=== PATIENT | female | born 1955 | race Caucasian/White ===

== ENCOUNTER 2020-01-10 07:10 | Outpatient (CLI) | payer MEDICAID, SELFPAY ==
[2020-01-12 16:24] LABS: Patient Race White; SARS-CoV-2 RNA Undetected (Undetected); SARS-CoV-2 Specimen Source Nasopharynx
== END 2020-01-10 07:30 ==
PROVIDERS: Nurse Practitioner Family; PCP Nurse Practitioner Adult Health; Visit Provider Nurse Practitioner Adult Health
DX: R05 Cough (principal)
CPT/HCPCS: U0003

== ENCOUNTER 2020-03-09 02:02 | Outpatient (CLI) | payer MEDICAID, SELFPAY ==
--- NOTE | 2020-03-09 08:00 | DI.US_ITS ---
EXAM: US PELVIS TRANSVAGINAL CLINICAL HISTORY: post-menopausal pelvic pain uterine cramping,R53.83,R10.2. TECHNIQUE: Transabdominal and transvaginal pelvic ultrasound was performed using standard protocol. FINDINGS: KIDNEYS: Kidneys are symmetric in size. No evidence of renal calculi. No evidence of hydronephrosis. No renal mass or cyst identified. UTERUS: Position: Retroverted. Size: 5.4 long by 2.9 AP by 4.2 transverse cm Endometrium: 5.6 mm. Unremarkable appearing endometrium. Myometrium: Unremarkable. Cervix: Unremarkable. OVARIES: Right: 2 x 1.2 x 1.2 cm Cyst or mass: None. Left: Not visualized transabdominally or transvaginally. DOPPLER: Color: Symmetric and uniform flow to the right ovary. No hyperemia. Duplex: Normal right ovarian arterial waveform visualized. CUL-DE-SAC: Free fluid: None. Other: None. IMPRESSION: 1. Normal sonographic appearance of the kidneys. 2. Normal-appearing uterus with endometrial stripe within normal limits. 3. Unremarkable right ovary. The left ovary was not visualized transabdominally or transvaginally. DATA REPOSITORY:
== END 2020-03-09 02:22 ==
PROVIDERS: PCP Nurse Practitioner Adult Health; Visit Provider Nurse Practitioner Adult Health
DX: R10.2 Pelvic and perineal pain (principal); N94.89 Other specified conditions associated with female genital organs and menstrual cycle
CPT/HCPCS: 76830; 76856

== ENCOUNTER 2020-03-11 02:55 | Outpatient (CLI) | payer MEDICAID, SELFPAY ==
[2020-03-11 07:28] LABS: HCT 39.7 % (36.0-46.0); HGB 13.1 g/dL (11.2-15.7); MCH 29.3 pg (27.0-33.0); MCV 88.8 fL (80-95); MPV 10.3 fL (8.0-11.0); Platelet Count 242 10^3/uL (130-400); RBC 4.47 10^6/uL (3.93-5.22); RDW 12.2 % (11.7-14.6); RDW-SD 39.8 fL; WBC 5.62 10^3/uL (4.4-10.8)
[2020-03-11 11:11] LABS: ALT 30 U/L (14-59); AST 17 U/L (15-37); Albumin 3.8 g/dL (3.4-5.0); Alkaline Phosphatase 83 U/L (46-116); Anion Gap 8.3 mmol/L (3-11); BUN 12 mg/dL (7-18); Bilirubin, Total 0.3 mg/dL (0.2-1.0); CO2 27.7 mmol/L (21.0-32.0); Calcium 8.9 mg/dL (8.5-10.1); Calculated LDL 146 mg/dL (<100); Chloride 107 mmol/L (98-107); Cholesterol 205 mg/dL (<200); Glucose 109 mg/dL (74-106); HDL Cholesterol 41 mg/dL (40-60); Potassium 4.2 mmol/L (3.5-5.1); Sodium 143 mmol/L (136-145); Total Protein 6.8 g/dL (6.4-8.2); Triglyceride 94 mg/dL (<150); Vitamin B12 226 pg/mL (193-986)
[2020-03-12 04:41] LABS: Vitamin D 25 Total 19.1 ng/ml (30-100)
== END 2020-03-11 03:15 ==
PROVIDERS: PCP Nurse Practitioner Adult Health; Visit Provider Nurse Practitioner Adult Health
DX: F41.8 Other specified anxiety disorders (principal); R13.10 Dysphagia, unspecified; R53.83 Other fatigue; Z13.220 Encounter for screening for lipoid disorders; Z86.39 Personal history of other endocrine, nutritional and metabolic disease
CPT/HCPCS: 36415; 80053; 80061; 82306; 85027; 82607; 83735; 84443

== ENCOUNTER 2020-10-19 01:25 | Outpatient (CLI) | payer MEDICAID, SELFPAY ==
--- NOTE | 2020-10-19 06:45 | DI.US_ITS ---
Exam(s) US ABDOMEN EXAM: US ABDOMEN CLINICAL HISTORY: gallbladder 2014 ?h/o borderline fatty liver,epigastric pain,r10.13 TECHNIQUE: Ultrasound of complete upper abdomen performed using standard protocol. COMPARISON: CT PELVIC/LOWER ABD WITHOUT CONT from 08/03/2016 CT PELVIC/LOWER ABD WITHOUT CONT from 08/03/2016 US US PELVIS TRANSVAGINAL from 03/09/2020 FINDINGS: There is no ascites evident. LIVER: There are no hepatic lesions evident nor obvious dilatation of intrahepatic ducts. GALLBLADDER/BILIARY: There are no gallstones. No gallbladder wall edema nor pericholecystic fluid. The common hepatic duct isnot dilated, measuring 3-4mm at the level of manuel hepatis. PANCREAS: There is no evidence of pancreatic mass nor dilatation of the pancreatic duct. SPLEEN: The spleen is not enlarged and there are no intrasplenic lesions evident. KIDNEYS:Kidneys exhibit normal size with no evidence of solid mass, calculus, nor hydronephrosis. No cortical cysts evident. ABDOMINAL AORTA: There is no evidence of abdominal aortic aneurysm. IVC: Normal diameter where visualized. IMPRESSION: 1. No evidence of cholelithiasis nor dilatation of the biliary tree. 2. No other significant ultrasound findings in the upper abdomen. 3. There is no ascites. DATA REPOSITORY:
--- NOTE | 2020-10-19 07:43 | DI.MAMMO_ITS ---
Exam(s) MAMMO SCREENING EXAM: MAMMO SCREENING CLINICAL HISTORY: screening,z12.39. TECHNIQUE: Bilateral full field digital CC and MLO mammographic images were obtained with 3D tomosyn thesis and utilizing computer aided detection (CAD). COMPARISON: Prior mammograms dating back to 2012, the most recent being 2015. Breast ultrasound September 2015 was also reviewed. FINDINGS: There has been no significant change in the appearance and distribution of the fibroglandular tissue. There are no new spiculated masses nor malignant appearing microcalcification groups. There is no significant architectural distortion nor skin thickening-retraction. IMPRESSION: No radiographic evidence of malignancy. BI-RADS Category 1 - Negative Breast Density - Category B - Scattered areas of fibroglandular density Breast density Category C or D implies that the patient has dense breast tissue. Dense breast tissue can make it harder to find cancer on a mammogram. Dense breast tissue is also associated with an incr eased risk of breast cancer. This information about the result of the mammogram report was provided to the patient to raise their awareness. Use this report when you speak with the patient about their risks for breast cancer, which includes their family history. At that time, you may recommend additional screening tests (Ultrasoun d or MRI) as these tests may add significant information. A negative radiographic report should not delay biopsy if a dominant or clinically suspicious mass is present. Up to ten percent of cancers are not identified on mammography. A negative report may reinforce clinical impression. Adenosis and dense breasts may obscure an underlying neoplasm. False positive reports average 6 to 10%. Patient will receive a letter notifying them of these results.
== END 2020-10-19 01:45 ==
PROVIDERS: PCP Nurse Practitioner Adult Health; Visit Provider Nurse Practitioner Adult Health
DX: Z12.31 Encounter for screening mammogram for malignant neoplasm of breast (principal); R10.13 Epigastric pain
CPT/HCPCS: 77063; 77067; 76700

== ENCOUNTER 2020-10-26 11:21 | Outpatient (REF) | payer MEDICAID, SELFPAY ==
--- NOTE | 2020-10-26 11:00 | PAPFT_PTH ---
PATIENT: Opal Hermosillo LOC: [facility] U#:[id number] AGE/SX: 64/F ROOM: RE10/26/[address]: Sparkle Smart APRN : 1955 BED: DIS: 10/26/2020 SPEC #: [id number] RECD: 10/26/20 18:12 STATUS: HAYES REQ #: [id number] ZUNILDA: 10/26/20 11:[address]: Sparkle Smart DEPT: [facility] Cytology RECD BY: Gauri Gordon Tissues: 1 - CX/ENDOCX FOR PAP SMEARS Procedures: PAP THIN PREP/UVM Screening HPV DNA PROBE Comments: [id number]
== END 2020-10-26 11:22 | disposition home or self-care (01) ==
LOC: LBN 11:21
PROVIDERS: PCP Nurse Practitioner Adult Health; Referring Provider Nurse Practitioner Adult Health; Visit Provider Nurse Practitioner Adult Health
DX: Z12.4 Encounter for screening for malignant neoplasm of cervix (principal); Z11.51 Encounter for screening for human papillomavirus (HPV)
CPT/HCPCS: 88142; 87624

== ENCOUNTER 2021-03-18 01:19 | Outpatient (CLI) | payer MEDICAID, SELFPAY ==
--- NOTE | 2021-03-18 08:30 | DI.DEXA_ITS ---
Exam(s) XR DEXA BONE DENSITY W/WO RIGO EXAM: XR DEXA BONE DENSITY W/WO RIGO CLINICAL HISTORY: compare with 2016 study,OSTEOPENIA, ,VIT D DEFICIENT,M85.80 TECHNIQUE: DDRdrive Horizon C densitometer COMPARISON: 2016 FINDINGS: Lateral view of the thoracic and lumbar spine shows no evidence of compression fractures. Bone mineral density measurements of the lumbar spine correspond to a total T-score of -2.2. This re presents a 9.2 percent decrease when compared with 2016. Bone mineral density measurements of the left hip correspond to a total T-score of -1.8. The femora l neck T-score is -1.9. This represents a 16.5 percent decrease compared with 2016.. The left forearm bone mineral density measurements correspond to a T-score of the distal 3rd of -1.7 , representing a 5.1 percent decrease compared with 2016. IMPRESSION: Osteopenia of the lumbar spine, left hip and left forearm with significant decreases in bone mineral density when compared with 2016.
== END 2021-03-18 01:39 ==
PROVIDERS: PCP Nurse Practitioner Adult Health; Visit Provider Nurse Practitioner Adult Health
DX: M85.88 Other specified disorders of bone density and structure, other site (principal); E55.9 Vitamin D deficiency, unspecified
CPT/HCPCS: 77080

== ENCOUNTER 2021-06-23 02:35 | Outpatient (CLI) | payer MEDICAID, SELFPAY ==
[2021-06-23 09:08] LABS: ALT 32 U/L (14-59); AST 17 U/L (15-37); Albumin 3.7 g/dL (3.4-5.0); Alkaline Phosphatase 78 U/L (46-116); BUN 14 mg/dL (7-18); Bilirubin, Total 0.4 mg/dL (0.2-1.0); CREATININE 0.8 mg/dL (0.55-1.02); Calcium 8.8 mg/dL (8.5-10.1); Calculated LDL 158 mg/dL (<100); Chloride 107 mmol/L (98-107); Cholesterol 225 mg/dL (<200); Glucose 102 mg/dL (74-106); HDL Cholesterol 46 mg/dL (40-60); Potassium 4.4 mmol/L (3.5-5.1); Sodium 142 mmol/L (136-145); TSH 3.65 uIU/mL (0.36-3.74); Total Protein 6.9 g/dL (6.4-8.2); Triglyceride 106 mg/dL (<150); Vitamin B12 378 pg/mL (193-986)
[2021-06-23 09:24] LABS: FREE T4 1.02 ng/dL (0.76-1.46)
[2021-06-23 19:49] LABS: Thyroglobulin Antibody 56 U/mL (<=60); Thyroperoxidase Antibody 1228 U/mL (<=60)
[2021-06-24 05:10] LABS: Vitamin D 25 Total 21.9 ng/mL (30-100)
== END 2021-06-23 02:36 | disposition home or self-care (01) ==
LOC: LBO 02:36
PROVIDERS: PCP Nurse Practitioner Adult Health; Visit Provider Nurse Practitioner Adult Health
DX: E53.8 Deficiency of other specified B group vitamins (principal); E55.9 Vitamin D deficiency, unspecified; E66.3 Overweight; E78.00 Pure hypercholesterolemia, unspecified; M85.88 Other specified disorders of bone density and structure, other site; R73.01 Impaired fasting glucose; Z80.8 Family history of malignant neoplasm of other organs or systems; Z83.49 Family history of other endocrine, nutritional and metabolic diseases
CPT/HCPCS: 36415; 80053; 80061; 82306; 86376; 82607; 84439; 84443

== ENCOUNTER → 2022-02-08 01:31 | Outpatient (CLI) | payer MEDICAID, SELFPAY ==
--- OUTSIDE RECORDS SUMMARY | 2022-01-21 00:28 | XMS_ITS | Clinical Summary ---
:1955 Author Organization [facility] [place] [address] Care Team Providers Name Role Phone Jennifer Haynesyce Yamilka REID Primary Care Provider Allergies Active Allergy Reactions Severity Noted Date Comments Sulfa (Sulfonamide Rash, Other (See 05/22/2014 Chill s/shakes/eyes Antibiotics) Comments) red. Medications Medication Sig Dispensed Refills Start Date End Date Status ERGOCALCIFEROL, Take by mouth 0 Active VITAMIN D2, (VITAMIN daily. D ORAL) MAGNESIUM ORAL Take 1,000 mg by 0 Active mouth daily. clonazePAM (KLONOPIN) Take 0.5 mg by 0 Active 0.5 mg Tablet, Rapid mouth as needed. Dissolve ibuprofen Take 600 mg by 0 Activ e (ADVIL;MOTRIN) 600 mg mouth as needed for Tablet Pain. Mometasone (NASONEX) by Nasal route as 0 Active 50 mcg/actuation needed. Mallard, Non-Aerosol acyclovir (ZOVIRAX) Take 400 mg by 0 Active 400 mg Tablet mouth as needed (for outbreaks on skin.). Active Problems Problem Noted Date Arthritis, degenerative 05/22/2014 Environmental allergies 05/22/2014 Heart palpitations 05/22/2014 Family History Medical History Relation Comments Diabetes Other Cancer Paternal Grandmother Fractures Neg Hx Relation Status Comments Other Paternal Grandmother Social History Tobacco Use Types Packs/Day Years Used Date Former Smoker Cigarettes 0.75 13 Quit: 05/08/18 88 Smokeless Tobacco: Never Used Alcohol Use Standard Drinks/Week Comments Yes 0 (1 standard drink = 0.6 oz pure alcoho l) very seldom states. Sex Assigned at Date Recorded Not on file Last Filed Vital Signs Vital Sign Reading Time Taken Comments Blood Pressure 131/67 05/22/2014 9:38 AM EST Pulse 85 05/22/2014 9:38 AM EST Temperature - - Respiratory Rate - - Oxygen Saturation - - Inhaled Oxygen Concentration - - Weight 82.4 kg (181 lb 11.2 oz) 05/22/2014 9:38 AM EST Height 161.3 cm (5' 3.5) 05/22/2014 9:38 AM EST Body Mass Index 31.68 05/22/2014 9:38 AM EST Plan of Treatment Health Maintenance Due Date Last Done Comments Covid-19 Vaccine (#1) 1962 HIV screen 11/20/1975 Hepatitis C Screening 11/20/1975 Tdap adult 1976 Tetanus vaccine 1976 HPV test 11/20/1987 PAP Smear 11/20/1987 Breast Cancer Share Decision Needed 1997 Colonoscopy 2002 Breast Cancer screening 11/20/2007 Zoster vaccine (1 of 2) 11/20/2007 Advance Directive 2012 Influenza (Flu) vaccine (1 of 1 - Influenza standard 01/06/2022 series) Insurance Payer Benefit Plan / Subscriber ID Effective Dates Phone Addre ss Type Group [place] [address] [place] [id number] 2017-Pres [phone] [address] [facility] [address] [place], [place] [id number] Care Teams Fuel System Maintenance Supervisor Relationship Specialty Start Date End Date Ramona Haynes APRN PCP - General Internal Medicine 04/25/[address] [place] [address]
--- OUTSIDE RECORDS SUMMARY | 2022-01-21 00:28 | XMS_ITS | Encounter Summary ---
:1955 Author Organization [facility] [place] [address] Care Team Providers Name Role Phone Suman Montgomery MD Primary Care Provider [phone] Reason for Visit Reason Onset Date Comments Pre Procedure Call 08/08/2014 Encounter Details Date Type Department Care Team Description 08/08/2014 [place]phone [place] [facility] [place], Pre Procedure Call [facility] [place] [address] [facility] [phone] ORTHOPAEDIC SURG [place], [place] [address] (Wo rk) Social History Tobacco Use Types Packs/Day Years Used Date Former Smoker Cigarettes 0.75 13 Quit: 05/08/18 88 Smokeless Tobacco: Never Used Alcohol Use Standard Drinks/Week Comments Yes 0 (1 standard drink = 0.6 oz pure alcoho l) very seldom states. Sex Assigned at Date Recorded Not on file documented as of this encounter Miscellaneous Notes Telephone Encounter - Maribel Jean RN - 08/08/2014 2:42 PM EDT Phone call to Ms. Hermosillo to discuss pain management prior to surgery. No answer at this time - message left requesting call back. Telephone Encounter - Sally Hamm - 08/08/2014 2:10 PM EDT Patient is calling asking what else she can take besides ibuprofen for pain. She is scheduled for a RIGHT TKA with Dr. Garcia on 09/08/14. I explained that usually Dr. Garcia does not give out any pre-operative pain medication and that needs to be managed through her primary care doctor but that I wouldpass the information along to see if the nurse might be able to offer up other suggestions or over th e counter medications that could help relieve the pain before surgery. documented in this encounter Plan of Treatment Not on filedocumented as of this encounter Visit Diagnoses Not on filedocumented in this encounter Care Teams Gearcase Assembler Relationship Specialty Start Date End Date Suman Montgomery MD PCP - General 03/30/10 02/14/[address] [place] [address] documented as of this encounter
--- OUTSIDE RECORDS SUMMARY | 2022-01-21 00:29 | XMS_ITS | Encounter Summary ---
:1955 Author Organization [facility] Address [facility] [place] [address] Care Team Providers Name Role Phone Suman Montgomery MD Primary Care Provider [phone] Encounter Details Date Type Department Care Team Description 07/24/2014 Orders Only [place] [facility] [place] Jean, Primary osteoarthritis [facility] RN of right knee ([address] Dx) [place] [address] Social History Tobacco Use Types Packs/Day Years Used Date Former Smoker Cigarettes 0.75 13 Quit: 05/08/18 88 Smokeless Tobacco: Never Used Alcohol Use Standard Drinks/Week Comments Yes 0 (1 standard drink = 0.6 oz pure alcoho l) very seldom states. Sex Assigned at Date Recorded Not on file documented as of this encounter Plan of Treatment Not on filedocumented as of this encounter Visit Diagnoses Diagnosis Primary osteoarthritis of right knee - P rimary Primary localized osteoarthrosis, lower leg documented in this encounter Care Teams Edge Cutting Machine Operator Relationship Specialty Start Date End Date Suman Montgomery MD PCP - General 03/30/10 02/14/17 [address] [place] [address] documented as of this encounter
--- OUTSIDE RECORDS SUMMARY | 2022-01-21 00:29 | XMS_ITS | Encounter Summary ---
:1955 Author Organization [facility] [place] [address] Care Team Providers Name Role Phone Suman Gallegos MD Primary Care Provider [phone] Reason for Visit Reason Onset Date Comments Referral 03/21/2014 Encounter Details Date Type Department Care Team Description 03/21/2014 Telephone [place] [facility] [place] [address] Social History Tobacco Use Types Packs/Day Years Used Date Never Assessed Sex Assigned at Date Recorded Not on file documented as of this encounter Miscellaneous Notes Telephone Encounter - Macarena Jones - 03/28/2014 8:09 AM EST Info here and scheduled for 05/22/[address] Garcia. Telephone Encounter - Donita Green - 03/26/2014 11:24 AM EST Left message to schedule referral. Telephone Encounter - Sherine Shore - 03/24/2014 9:33 AM EST Ask the patient to verify the following: Full Name: Opal Hermosillo : 1955 Phone number: [phone] (home) Mailing address: [address] [place] [address] Age: 58 y.o. Appointment date: TBD Appointment is with: TBD Reason #1 Injury/Complaint: RIGHT KNEE PAIN Date of injury/complaint: SEPTEMBER 2012 Is this a new injury? No Is this a 2nd opinion? Yes Appointment type: 18-100 Adult - Not sports related Is this Workers Comp? No How long have you had these symptoms? 1 1/2 years Records Retrieval Most recent physical exam: Yes - When? Where? Who? Notes: 2013 [place], [place] PH: [phone] FAX: [phone] GALLEGOS X-rays: Yes - When? Where? Notes: [id number] [place], [place] PH: [phone] FAX: [phone] IMG PUSH MRI: Yes - When? Where? Notes: March 2013 [place], [place] PH: [phone] FAX: [phone] Scan: No Physical therapy: Yes - When? Where? Who? Notes: APR 2013- JUL 2013 [place], [place] PH: [phone] FAX: [phone] IMG PUSH Injection: Yes - When? Where? Who? Notes: [address] [place], [place] PH: [phone] FAX: [phone] VYAS Other diagnostic studies: No Other therapies: No Other specialist(s): No If 2nd (+) opinion get info on previous: Yes - What? When? Where? Who? Notes: ORTHOPEDIC SURGERY SEPTEMBER 2012- 2013 [place], [place] PH: [phone] FAX: [phone] VYAS Have you had any surgeries for this issue? Yes - What? When? Where? Who? Notes: [facility]ISC[facility] TEAR April 2013 [place], [place] PH: [phone] FAX: [phone] IMG PUSH Did surgery include placement of implant/hardware or fixation of any kind? No Do you use any type of orthotics? No Advanced Directive Do you have an Advanced Directive on file: No - Please bring a copy to your next appointment. Advance Directive airline pilot flight instructor: New patient with knee pain under age of 55. MyD Do you have a [facility] account? No - Patient Declined Telephone Encounter - Macarena Jones - 03/21/2014 3:46 PM EST LM #1 to call back and set up referral. documented in this encounter Plan of Treatment Not on filedocumented as of this encounter Visit Diagnoses Not on filedocumented in this encounter Care Teams Level Vial Sealer Relationship Specialty Start Date End Date Suman Gallegos MD PCP - General 03/30/10 02/14/17 [address] [place] [address] documented as of this encounter
--- OUTSIDE RECORDS SUMMARY | 2022-01-21 00:29 | XMS_ITS | Encounter Summary ---
:1955 Author Organization [facility] [address] Care Team Providers Name Role Phone Suman Montgomery MD Primary Care Provider [phone] Reason for Visit Reason Comments Right Knee Pain s/p doi wc 09/05/12 Encounter Details Date Type Department Care Team Description 05/22/2014 Office Visit [place] [facility] [place]ph [place] [facility] [place] [address] Primary osteoarthritis [facility] Tessa Fuller APRN [facility] [place] [address] [place] [id number] Social History Tobacco Use Types Packs/Day Years Used Date Former Smoker Cigarettes 0.75 13 Quit: 05/08/18 88 Smokeless Tobacco: Never Used Alcohol Use Standard Drinks/Week Comments Yes 0 (1 standard drink = 0.6 oz pure alcoho l) very seldom states. Sex Assigned at Date Recorded Not on file documented as of this encounter Last Filed Vital Signs Vital Sign Reading [...] Mass Index 31.68 05/22/2014 9:38 AM EST documented in this encounter Progress Notes Tessa Lubin, WRAPPER AND PRESERVER - 05/22/2014 10:48 AM EST PATIENT NAME: Opal Hermosillo AGE: 58 y.o. MR#: [id number] DATE OF VISIT: 05/22/2014 DATE OF INJURY/ONSET: September 2012 STAFF: Today's covering physician is Dr. Garcia. CHIEF COMPLAINT: Right knee pain s/p medial menisectomy HISTORY OF PRESENT ILLNESS Ms. Hermosillo a 58 y.o. year old female, with a history of right knee advanced DJD, comes into clinic today for moderate to severe right medial knee pain s/p medial menisectomyin April 2013. She states she initially tripped over a tailgate when she sustained the meniscus tear. She had the surgery and reports that she felt great for about a month and then began to rapidly decline. She developed severe medial right knee pain and decreased ROM to the point that she had to stop PT because of her discomfort. She reports that she went back to Dr. Garrett, who completed her surgery, and was told she had advanced arthritis and to loose 20lbs. This caused her great distress. Gailhas also been told by her PCP and massage therapist that her knee pain and images appear grossly abnormal, which has cause her anxiety. She states that the pain is worse with activities such as walkingand after transitioning from sitting to standing. She had a cortisone injection in January of 2014, which provided 2 weeks to 1 month of relief. She has also utilized NSAIDs without much relief. She also admits to intermittent swelling. She presents today for a second opinion. Outside reports reviewed: office notes, operative reports, radiology reports and referral letter/letters. Patient's medications, allergies, past medical, surgical, social and family histories were reviewed and updated as appropriate. PAST MEDICAL HISTORY: Active Ambulatory Problems Diagnosis Date Noted ??? Arthritis, degenerative 05/22/2014 ??? Environmental allergies 05/22/2014 ??? Heart palpitations 05/22/2014 Resolved Ambulatory Problems Diagnosis Date Noted ??? No Resolved Ambulatory Problems No Additional Past Medical History PAST SURGICAL HISTORY: Tubal ligation. x 2. Rhinoplasty. Right medial menisectomy in April 2013. FAMILY HISTORY: Family History Problem (# of Occurrences) Relation (Name,Age of Onset) Cancer (1) Paternal Grandmother Diabetes (1) Other Negative family history of: Fractures SOCIAL HISTORY: Tobacco: Former smoker. Quit in 1987. Alcohol: 1 drink per month. 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 Current outpatient prescriptions:ERGOCALCIFEROL, VITAMIN D2, (VITAMIN D ORAL), Take by mouth daily.,Disp: , Rfl: , ; MAGNESIUM ORAL, Take 1,000 mg by mouth daily., Disp: , Rfl: , ; clonazePAM (KLONOPIN) 0.5 mg Tablet, Rapid Dissolve, Take 0.5 mg by mouth as needed., Disp: , Rfl: , ; ibuprofen (ADVIL;MOTRIN) 600 mg Tablet, Take 600 mg by mouth as needed for Pain., Disp: , Rfl: , Mometasone (NASONEX) 50 mcg/actuation [place], Non-Aerosol, by Nasal route as needed., Disp: , Rfl: , ; acyclovir (ZOVIRAX) 400 mg Tablet, Take 400 mg by mouth as needed (for outbreaks on skin.)., Disp: , Rfl: , ROS: Negative for fever, chills, SOB, chest pain, nausea, vomiting, and diarrhea. Physical Exam Blood pressure 131/67, pulse 85, height 161.3 cm (5' 3.5), weight 82.419 kg (181 lb 11.2 oz). Constitutional: oriented to person, place, and time and well-developed, well- nourished, and in no distress. Skin: Skin is warm and dry. I have made the following determinations: Knee Exam: Right Prior surgery on this joint: Yes, medial menisectomy. Gait Abnormality: Normal Knee ROM: Extension:5 Flexion: 125 Alignment: 5-10 degrees Valgus Stability: A/P Translation <5mm. Varus (lateral stability) <5mm Valgus (medial stability) <5mm Extension La degrees or less Radiographic evidence of joint damage: [0= normal; 1=minimal ; 2= some osteophytes , some narrowing ; 3= moderate osteophytes, significant narrowing, mild deformity; 4= large osteophytes, marked narrowing, obvious deformity]: 4= large osteophytes, marked narrowing, obvious deformity Patella Tracking: Abnormal Skin Integrity: Normal Pulses Palpable: Right PT: Yes Right DP:Yes Motor/Sensory: Distal Motor: Normal Distal Sensory: Normal Quadriceps Strength: 4 I have made the following determinations: Knee Exam: Left Prior surgery on this joint: No Gait Abnormality: Normal Knee ROM: Extension:0 Flexion: 125 Alignment: 5-11 degrees Valgus Stability: A/P Translation <5mm Varus (lateral stability) <5mm Valgus (medial stability) <5mm Extension La degrees or less Radiographic evidence of joint damage: [0= normal; 1=minimal ; 2= some osteophytes , some narrowing ; 3= moderate osteophytes, significant narrowing, mild deformity; 4= large osteophytes, marked narrowing, obvious deformity]: 3= moderate osteophytes, significant narrorwing, mild deformity Patella Tracking: Abnormal Skin Integrity: Normal Pulses Palpable: Left PT:Yes Left DP:Yes Motor/Sensory: Distal Motor:Normal Distal Sensory: Normal Quadriceps Strength:4 RADIOLOGICAL STUDIES: I reviewed multiple x-ray images of the patient's bilateral knees taken today,which reveal the following: FINDINGS: The standing alignment study documents medial displacement of the mechanical axis bilaterally secondary to pronounced medial compartment joint space narrowing. Abnormal findings include subchondral sclerosis, osteophyte formation and severe joint space narrowing at the medial compartment. I do not see evidence of acute injury. ASSESSMENT/PLAN: Opal Hermosillo is a 58 y.o. female presents to the clinic with rapidly worsening right knee pain s/p medial menisectomy in April of 2013. Exam and imaging reveal advanced medial compartment degenerative joint disease bilaterally, though she is only symptomatic on the right side. Dr. Garcia and I discussed with the patient that rapidly progressing DJD sometimes occurs following arthroscopy. We also discussed the arthritis ladder with the patient. She has exhausted mostly all of the conservative measures with exception to a medial compartment offloading brace, thus a prescription for one was given. We discussed that she would likely not benefit from further cortisone injections as her response was not robust last time; however, we would be happy to provide one if she would like to try again. Dr. Garcia also discussed a potential right TKA as the ultimate intervention and reassured her that shecould continue activities as tolerated without causing further harm. The patient will go home and think about her options and f/u PRN. documented in this encounter Plan of Treatment Not on filedocumented as of this encounter Visit Diagnoses Diagnosis Primary osteoarthritis of right knee Primary localized osteoarthrosis, lower leg documented in this encounter Care Teams Sweat Band Sewer Relationship Specialty Start Date End Date Suman Montgomery MD PCP - General 03/30/10 02/14/[address] [place] [address] documented as of this encounter
--- OUTSIDE RECORDS SUMMARY | 2022-01-21 00:29 | XMS_ITS | Encounter Summary ---
:1955 Author Organization [facility] [place] [address] Care Team Providers Name Role Phone Suman Montgomery MD Primary Care Provider [phone] Encounter Details Date Type Department Care Team Description 01/24/2013 Orders Only Orthopaedics at [facility] Joesph Garcia MD [facility] [place] [address] ORTHOPAEDIC SURGERY [phone] [place] [address] (Wo rk) Social History Tobacco Use Types Packs/Day Years Used Date Never Assessed Sex Assigned at Date Recorded Not on file documented as of this encounter Plan of Treatment Not on filedocumented as of this encounter Procedures Procedure Name Priority Date/Time Associated Diagnosis Comme nts FILM LIBRARY Routine 01/24/2013 8:15 AM Results f or this STORAGE ONLY DX EDT procedure ar e in KNEE the results section. documented in this encounter Results Film Library- Storage only DX Knee (01/24/2013 8:15 AM EDT) Anatomical Region Laterality Modality Other Specimen (Source) Anatomical Collection Method Collection Time Re ceived Time Location / / Volume Laterality 01/24/2013 8:15 AM EDT Narrative 03/25/2014 8:45 PM EST This is a Non-reportable exam Procedure Note ESTELA, UNSIGNED REPORT - 03/25/2014Formatt ing of this note might be different from the original. This is a Non-reportable exam Joesph Garcia MD IMG FILM LIBRARY ORDERABLES documented in this encounter Visit Diagnoses Not on filedocumented in this encounter Care Teams Quiller Hand Relationship Specialty Start Date End Date Suman Montgomery MD PCP - General 03/30/10 02/14/[address] [place] [address] documented as of this encounter
--- OUTSIDE RECORDS SUMMARY | 2022-01-21 00:29 | XMS_ITS | Encounter Summary ---
:1955 Author Organization [facility] Address [facility] [place] [address] Care Team Providers Name Role Phone Suman Montgomery MD Primary Care Provider [phone] Encounter Details Date Type Department Care Team Description 05/22/2014 Hospital Encounter XRay at [facility] Right knee pain [facility] [place] [address] Social History Tobacco Use Types Packs/Day Years Used Date Former Smoker Cigarettes 0.75 13 Quit: 05/08/18 88 Smokeless Tobacco: Never Used Alcohol Use Standard Drinks/Week Comments Yes 0 (1 standard drink = 0.6 oz pure alcoho l) very seldom states. Sex Assigned at Date Recorded Not on file documented as of this encounter Medications at Time of Discharge Medication Sig Dispensed Refills Start Date End Date ERGOCALCIFEROL, VITAMIN Take by mouth daily. 0 D2, (VITAMIN D ORAL) MAGNESIUM ORAL Take 1,000 mg by mouth 0 daily. clonazePAM (KLONOPIN) Take 0.5 mg by mouth as 0 0.5 mg Tablet, Rapid needed. Dissolve ibuprofen (ADVIL;MOTRIN) Take 600 mg by mouth as 0 600 mg Tablet needed for Pain. Mometasone (NASONEX) 50 by Nasal route as 0 mcg/actuation [place], needed. Non-Aerosol acyclovir (ZOVIRAX) 400 Take 400 mg by mouth as 0 mg Tablet needed (for outbreaks on skin.). documented as of this encounter Plan of Treatment Not on filedocumented as of this encounter Procedures Procedure Name Priority Date/Time Associated Diagnosis Comme nts XR JOINT TEAM Routine 05/22/2014 9:20 AM Results for this ALIGNMENT AP LAT EST procedure a re in [place] the results section. documented in this encounter Results XR Joint Team alignment AP LAT [place] (05/22/2014 9:20 AM EST) Anatomical Region Laterality Modality N/A Radiographic Imaging Specimen (Source) Anatomical Collection Method Collection Time Re ceived Time Location / / Volume Laterality 05/22/2014 9:20 AM EST Impressions 05/22/2014 12:03 PM EST IMPRESSION: Severe osteoarthritis with medial compar tment narrowing bilaterally. Narrative 05/22/2014 12:03 PM EST EXAMINATION: JOINT TEAM STANDING ALIGNMENT AP LAT [place] CLINICAL HISTORY: R KNEE PAIN/ OA/DJD/2N D OPINION TECHNIQUE: Separate images of the pelvis , knees and feet were acquired in the AP projection with the patient standing. Th emory images were stitched together to form a composite image of the pelvis and legs allowing for evaluation of lower extremity alignment in the weight bearin g position. Four additional views of the knee were taken. COMPARISON: 01/13/2014 FINDINGS: The standing alignment study d ocuments medial displacement of the mechanical axis bilaterally secondary to pronounced medial compartment joint space narrowing. Abnormal findings include subchondral sc lerosis, osteophyte formation and severe joint space narrowing at the medial comp artment. I do not see evidence of acute injury. Procedure Note Butch Harman MD - 05/22/2014Forma tting of this note might be different from the original. EXAMINATION: JOINT TEAM STANDING ALIGNME NT AP LAT [place] CLINICAL HISTORY: R KNEE PAIN/ OA/DJD/2N D OPINION TECHNIQUE: Separate images of the pelvis , knees and feet were acquired in the AP projection with the patient standing. Th emory images were stitched together to form a composite image of the pelvis and legs allowing for evaluation of lower extremity alignment in the weight bearin g position. Four additional views of the knee were taken. COMPARISON: 01/13/2014 FINDINGS: The standing alignment study d ocuments medial displacement of the mechanical axis bilaterally secondary to pronounced medial compartment joint space narrowing. Abnormal findings include subchondral sc lerosis, osteophyte formation and severe joint space narrowing at the medial comp artment. I do not see evidence of acute injury. IMPRESSION IMPRESSION: Severe osteoarthritis with medial compar tment narrowing bilaterally. Joesph Garcia MD IMG DX ORDERABLES documented in this encounter Visit Diagnoses Diagnosis Right knee pain Pain in joint, lower leg documented in this encounter Care Teams Leg Man Relationship Specialty Start Date End Date Suman Montgomery MD PCP - General 03/30/10 02/14/17 [address] [place] [address] documented as of this encounter
--- OUTSIDE RECORDS SUMMARY | 2022-01-21 00:29 | XMS_ITS | Encounter Summary ---
:1955 Author Organization [facility] Address [facility] [place] [address] Care Team Providers Name Role Phone Suman Montgomery MD Primary Care Provider [phone] Reason for Visit Reason Onset Date Comments Questions 07/23/2014 WANTS TO SCHEDULE JOYA SREE Encounter Details Date Type Department Care Team Description 07/23/2014 Telephone Orthopaedics at [facility] Joesph Garcia, Questions (WANTS TO [facility] Swapnil cervantes MD SCHEDULE SURGERY) [place] [address] [facility] [phone] DR ORTHOPAEDIC SURGERY [place], [place] [address] Social History Tobacco Use Types Packs/Day Years Used Date Former Smoker Cigarettes 0.75 13 Quit: 05/08/18 88 Smokeless Tobacco: Never Used Alcohol Use Standard Drinks/Week Comments Yes 0 (1 standard drink = 0.6 oz pure alcoho l) very seldom states. Sex Assigned at Date Recorded Not on file documented as of this encounter Miscellaneous Notes Telephone Encounter - Sally Hamm - 07/28/2014 10:10 AM EDT I called patient back and she has decided to go forward with a RIGHT TKA with Dr. Garcia on 09/08/14. I have scheduled her pre-op and post-op appointments with her over the phone. Thank you. 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 I gave her several dates that Dr. Garcia has available and told her to callme back directly once she knows what will work for her. Telephone Encounter - Macarena Jones - 07/23/2014 9:47 AM EDT Who is calling: PATIENT Was this a new injury? NO Have you had Surgery?NOT YET WANTS TO SCHEDULE If so when?NO Who was the Surgeon?DR. GARCIA What is the question: PATIENT IS CALLING TO SAY SHE WANTS TO SET UP THE SURGERY FOR THE RIGHT KNEE TKA Best number to reach the caller: [phone] documented in this encounter Plan of Treatment Not on filedocumented as of this encounter Visit Diagnoses Not on filedocumented in this encounter Care Teams Electronic Warfare Linguist Relationship Specialty Start Date End Date Suman Montgomery MD PCP - General 03/30/10 02/14/[address] [place] [address] documented as of this encounter
--- OUTSIDE RECORDS SUMMARY | 2022-01-21 00:29 | XMS_ITS | Encounter Summary ---
:1955 Author Organization [facility] [place] [address] Care Team Providers Name Role Phone Suman Montgomery MD Primary Care Provider [phone] Encounter Details Date Type Department Care Team Description 03/11/2013 Orders Only Orthopaedics at [facility] Joesph Garcia [place] [address] ORTHOPAEDIC SURGERY [phone] [place] [address] (Wo rk) Social History Tobacco Use Types Packs/Day Years Used Date Never Assessed Sex Assigned at Date Recorded Not on file documented as of this encounter Plan of Treatment Not on filedocumented as of this encounter Procedures Procedure Name Priority Date/Time Associated Diagnosis Comme nts FILM LIBRARY Routine 03/11/2013 8:15 AM Results f or this STORAGE ONLY MR EST procedure ar e in KNEE the results section. documented in this encounter Results Film Library- Storage only MR Knee (03/11/2013 8:15 AM EST) Anatomical Region Laterality Modality Other Specimen (Source) Anatomical Collection Method Collection Time Re ceived Time Location / / Volume Laterality 03/11/2013 8:15 AM EST Narrative 03/25/2014 8:45 PM EST This is a Non-reportable exam Procedure Note ESTELA, UNSIGNED REPORT - 03/25/2014Formatt ing of this note might be different from the original. This is a Non-reportable exam Joesph Garcia MD IMG FILM LIBRARY ORDERABLES documented in this encounter Visit Diagnoses Not on filedocumented in this encounter Care Teams Landscaping Crew Leader Relationship Specialty Start Date End Date Suman Montgomery MD PCP - General 03/30/10 02/14/17 [address] [place] [address] documented as of this encounter
--- OUTSIDE RECORDS SUMMARY | 2022-01-21 00:29 | XMS_ITS | Encounter Summary ---
:1955 Author Organization [facility] [place] [address] Care Team Providers Name Role Phone Suman Montgomery MD Primary Care Provider [phone] Encounter Details Date Type Department Care Team Description 05/20/2014 Orders Only Orthopaedics at [facility] Joesph Garcia, Right knee pain [facility] [place] [address] [facility] [phone] DR ORTHOPAEDIC SURG [place] [address] (Wo rk) Social History Tobacco Use Types Packs/Day Years Used Date Never Assessed Sex Assigned at Date Recorded Not on file documented as of this encounter Plan of Treatment Not on filedocumented as of this encounter Visit Diagnoses Diagnosis Right knee pain Pain in joint, lower leg documented in this encounter Care Teams Dozer Operator Relationship Specialty Start Date End Date Suman Montgomery MD PCP - General 03/30/10 02/14/[address] [place] [address] documented as of this encounter
--- OUTSIDE RECORDS SUMMARY | 2022-01-21 00:29 | XMS_ITS | Encounter Summary ---
:1955 Author Organization [facility] [place] [address] Care Team Providers Name Role Phone Suman Montgomery MD Primary Care Provider [phone] Encounter Details Date Type Department Care Team Description 01/23/2014 Orders Only [place]edics at [facility] Joesph Garcia MD [facility] [place] [address] ORTHOPAEDIC SURGERY [phone] [place] [address] (Wo rk) Social History Tobacco Use Types Packs/Day Years Used Date Never Assessed Sex Assigned at Date Recorded Not on file documented as of this encounter Plan of Treatment Not on filedocumented as of this encounter Procedures Procedure Name Priority Date/Time Associated Diagnosis Comme nts FILM LIBRARY Routine 01/23/2014 8:15 AM Results f or this STORAGE ONLY DX EDT procedure ar e in KNEE the results section. documented in this encounter Results Film Library- Storage only DX Knee (01/23/2014 8:15 AM EDT) Anatomical Region Laterality Modality Other Specimen (Source) Anatomical Collection Method Collection Time Re ceived Time Location / / Volume Laterality 01/23/2014 8:15 AM EDT Narrative 03/25/2014 8:45 PM EST This is a Non-reportable exam Procedure Note ESTELA, UNSIGNED REPORT - 03/25/2014Formatt ing of this note might be different from the original. This is a Non-reportable exam Joesph Garcia MD IMG FILM LIBRARY ORDERABLES documented in this encounter Visit Diagnoses Not on filedocumented in this encounter Care Teams Baggage Inspector Relationship Specialty Start Date End Date Suman Montgomery MD PCP - General 03/30/10 02/14/[address] [place] [address] documented as of this encounter
--- OUTSIDE RECORDS SUMMARY | 2022-01-21 00:30 | XMS_ITS | Encounter Summary ---
:1955 Author Organization [facility] Address [address] [place] [address] Care Team Providers Name Role Phone Suman Montgomery MD Primary Care Provider [phone] Encounter Details Date Type Department Care Team Description 09/10/2012 Results Only [facility] Fletcher Garay, FITNESS CENTER ATTENDANT [address] [place] [address] (Wo rk) Social History Tobacco Use Types Packs/Day Years Used Date Never Assessed Sex Assigned at Date Recorded Not on file documented as of this encounter Plan of Treatment Not on filedocumented as of this encounter Procedures Procedure Name Priority Date/Time Associated Diagnosis Comme [facility] SURGICAL PATHOLOGY Routine 09/10/2012 16:34 Resul ts for this EDT procedure are i n the results section. documented in this encounter Results SURGICAL PATHOLOGY (09/10/2012 16:34 EDT) Pathology Report: SURGICAL PATHOLOGY REPORT [facility] Reports generated via electronic interface contain lucas ginal data; LAB however they are lacking the format of the original re port. Caution should be taken when reading/interpreting unfo rmatted reports. Name: ? OPAL BRAVO ? Accession #: ? [id number] ? : ? 1955 (Age: 56) ??F ? Collect Date: ? 09/10/2012 ? Location: ? [facility] ? Receive Date: ? 013 ? Provider: FLETCHER MESA [facility] ATTENDANT Copy to: ? Final Pathologic Diagnosis: ? Skin of shoulder, right posterior, punch biopsy : - Seborrheic keratosis. Microscopic Description: ? The stratum corneum i s thickened by compact and basketweave orthokeratosis with formation of horn pseud ocysts. ??The epidermis is acanthotic with formation of broad and anastomosing tr abeculae. ??The trabeculae are composed of basaloid keratinocytes with round uniform nuclei. ??The keratin ocytes have a variable amount of melanin pigment. ??(Dr. Mcfarland)/[facility] Document reviewed and electronically signed by: ONEIDA MCFARLAND MD Report ??Date: 09/12/2012 15:12 By the signature above, the attending physician certif ies that he/she has personally conducted a gross and/or microscopic examin ation of the described specimens and rendered or confirmed the above diagnosi s. Specimen(s) Received: ? R posterior shoulder skin lesion Clinical History: ? Irregular borders & brown nevi; clinical diagno sis code: ??709.9 Gross Description: ? Received in formalin labelled [place], Opal and R posterior shoulder is a 0.4 cm in diameter x 0. 2 cm in thickness apparent punch biopsy of zhao-pink firm skin. ??The specimen is bisected and entire ly submitted in cassette (1). (Aundrea Mcallister)/[facility] End of Report Specimen Performing Organization Address City/State/ZIP Code Phon e Number [facility] [address] [place] [address] SERVICES [facility] [address] [place] [address] documented in this encounter Visit Diagnoses Not on filedocumented in this encounter Care Teams Accountant Tax Relationship Specialty Start Date End Date Suman Montgomery MD PCP - General 06/04/[address] [place] [address] documented as of this encounter
--- OUTSIDE RECORDS SUMMARY | 2022-01-21 00:30 | XMS_ITS | Encounter Summary ---
:1955 Author Organization [facility] Address [address] [place] [address] Care Team Providers Name Role Phone Suman Montgomery MD Primary Care Provider [phone] Encounter Details Date Type Department Care Team Description 03/20/2014 Results Only [facility] Fletcher Garay, COMMUNICATIONS ENGINEERING TECHNICIAN [address] [place] [address] (Wo rk) Social History Tobacco Use Types Packs/Day Years Used Date Never Assessed Sex Assigned at Date Recorded Not on file documented as of this encounter Plan of Treatment Not on filedocumented as of this encounter Procedures Procedure Name Priority Date/Time Associated Diagnosis Comme nts PAP TEST- RESULT Routine 03/20/2014 0:00 EST Resu lts for this ONLY procedure are i n the results section. documented in this encounter Results PAP TEST- RESULT ONLY (03/20/2014 0:00 EST) Pathology Report: CYTOPATHOLOGY REPORT [facility] Reports generated via electronic interface contain lucas ginal data; SERVICES however they are lacking the format of the original re port. Caution should be taken when reading/interpreting unfo rmatted reports. Name: ? OPAL BRAVO ? Accession #: ? [id number] ? : ? 1955 (Age: 58) ??F ?Collect Da te: ? 03/20/2014 ? Location: ? [facility] ? Receive Date: ? 014 ? Provider: FLETCHER MESA COMMUNICATIONS ENGINEERING TECHNICIAN Copy to: ? Final Report SPECIMEN ADEQUACY ? Satisfactory for Evaluation - transformation zone component absent GENERAL CATEGORIZATION ? Negative for Intraepithelial Lesion or Malignan cy ?? Specimen/Source: ??Pap Test, Endocervix, ThinPrep Imag ing System with manual evaluation Document reviewed and electronically signed by: ? Rasta Cross, [place](ASCP) ? Report ??Date: 03/31/2014 10:16 HPV with Pap Test ? Date Ordered: ? 03/31/2014 ? Status: ?? Signed Out ?Date Complete: ? 04/02/2014 ? By: ??S ystem Interface ? Date Reported: ? 04/02/2014 ? Interpretation RESULT: Negative for HPV. No E6 or E7 mRNA is detected from HPV types 16,18,31,3 3,35, 39,45,51,52,56,58,59,66, and 68 by hand stone polisher media geoffrey amplification. Comments Document reviewed and electronically signed by: ? System Interface ? Report date: 04/02/2014 By the signature above, the attending physician certif ies that he/she has personally conducted a gross and/or microscopic examin ation of the described specimens and rendered or confirmed the above diagnosi s. End of Report Specimen Performing Organization Address City/State/ZIP Code Phon e Number [facility] [address] [place] [address] SERVICES documented in this encounter Visit Diagnoses Not on filedocumented in this encounter Care Teams Taxation Consultant Relationship Specialty Start Date End Date Suman Montgomery MD PCP - General 06/04/[address] [place] [address] documented as of this encounter
--- OUTSIDE RECORDS SUMMARY | 2022-01-21 00:30 | XMS_ITS | Encounter Summary ---
:1955 Author Organization [facility] Address [address] [place] [address] Care Team Providers Name Role Phone Suman Gallegos MD Primary Care Provider [phone] Encounter Details Date Type Department Care Team Description 03/26/2001 Results Only [facility] - Ilir Fontana MD conversion [address] [place] [address] Social History Tobacco Use Types Packs/Day Years Used Date Never Assessed Sex Assigned at Date Recorded Not on file documented as of this encounter Plan of Treatment Not on filedocumented as of this encounter Procedures Procedure Name Priority Date/Time Associated Diagnosis Comme [facility] SURGICAL PATHOLOGY Routine 03/26/2001 0:00 EST Re sults for this procedure are i n the results section. documented in this encounter Results SURGICAL PATHOLOGY (03/26/2001 0:00 EST) Pathology Report: SURGICAL PATHOLOGY REPORT [facility] Reports generated via electronic interface contain lucas ginal data; LAB however they are lacking the format of the original re port. Caution should be taken when reading/interpreting unfo rmatted reports. Name: ? OPAL BRAVO ? Accession #: ? [id number] ? : ? 1955 (Age: 45) ??F ? Collect Date: ? 03/26/2001 ? Location: ? [facility] ? Receive Date: ? 001 ? Provider: ILIR BROWN MD Copy to: SAMUEL GALLEGOS MD ? Final Pathologic Diagnosis: ? Peritoneum, left pelvic sidewall, biopsy: 1. ?Benign fibrofatty connective tissue. ?? 2. ?No fallopian tube identified. ?? Document reviewed and electronically signed by: IVONE ALONZO MD Report ??Date: 03/28/2001 16:13 By the signature above, the attending physician certif ies that he/she has personally conducted a gross and/or microscopic examin ation of the described specimens and rendered or confirmed the above diagnosi s. Specimen(s) Received: ? Left pelvic sidewall Clinical History: ? Laparoscopic tubal ligation Gross Description: ? Received in formalin labelled Bay and left pelvic sidewall is a 3.0 x 0.9 x 0.2 cm fragment of rodriguez-pink to rodriguez-white fibro membranous soft tissue with a moderate amount of ca utery artifact. ??The specimen is serially sectioned revealing no gross abnormalities and no evidence of fa llopian tube. ??The specimen is submitted entirely in one cassette. ??(Dr. Calvin)/heather End of Report Specimen Performing Organization Address City/State/ZIP Code Phon e Number [facility] [address] [place] [address] SERVICES [facility] [address] [place] [address] documented in this encounter Visit Diagnoses Not on filedocumented in this encounter Care Teams Zipper Joiner Relationship Specialty Start Date End Date Suman Gallegos MD PCP - General 06/04/09 [address] [place] [phone] documented as of this encounter
--- OUTSIDE RECORDS SUMMARY | 2022-01-21 00:30 | XMS_ITS | Encounter Summary ---
:1955 Author Organization [facility] Address [address] [place] [address] Care Team Providers Name Role Phone Suman Montgomery MD Primary Care Provider [phone] Encounter Details Date Type Department Care Team Description 06/04/2009 Orders Only [facility] Monique Zamudio, MELISSA Laboratory Services - [address] [address] [place] [address] [phone] Social History Tobacco Use Types Packs/Day Years Used Date Never Assessed Sex Assigned at Date Recorded Not on file documented as of this encounter Plan of Treatment Not on filedocumented as of this encounter Procedures Procedure Name Priority Date/Time Associated Comments Diagnosis HPV DETECTION, HIGH Routine 06/04/2009 15:08 Resu lts for this RISK TYPES EST procedure are i n the results section. CYTOPATHOLOGY Routine 06/04/2009 0:00 Results for this EST procedure are i n the results section. documented in this encounter Results HUMAN PAPILLOMA VIRUS DNA TEST (06/04/2009 15:08 EST) Specimen Description Cervix, ThinPrep [facility] AB vial Result Negative for HPV [facility] VAZQUEZ types 16, 18, 31, 33, 35, 39, 45, 51, 52, 56, 58, 59, and 68. Report Status Final [facility] 06/11/2009 Specimen Performing Organization Address City/State/ZIP Code Phon e Number [facility] [address] [place] [address] SERVICES [facility] [address] [place] [address] CYTOPATHOLOGY (06/04/2009 0:00 EST) Pathology Report: CYTOPATHOLOGY REPORT ? [facility] ? LAB Reports generated via electr ICONOGRAFICOic interface contain original data; ? however they are lacking the format of the original report. ? Caution should be taken when reading/interpreting unformatted reports. ? Name: ? OPAL BRAVO ? Accession #: ? [id number] ? : ? 1955 (Age: 53) ??F ?Collect Date: ? 06/04/2009 ? Location: ? [facility] ? Receive Date: ? 06/05/2009 ? Provider: ?JOEL L R [facility] ? Copy to: ?SARABJIT S YUNIOR [place] MD ? Specimen/Source: ? Pap Test, Vagina, ThinPrep Imaging System with manual ?? evaluation ? Last Menstrual Period: ? Other: ? Additional clinical informat ion: Vaginal lesion, past hx of warts ? HPVDX - HPV testing requeste d regardless of diagnosis on current ThinPrep Pap ?? test. ? SPECIMEN ADEQUACY ? Satisfactory for Eval uation ? - transformation zone compon ent present ? GENERAL CATEGORIZATION ? Negative for Intraepi thelial Lesion or Malignancy ? Document reviewed and electr onically signed by: ? Devora Lalo, CT(ASCP ) ? Report Date: ??02/01/ 2010 08:58 ? End of Report ? Specimen Performing Organization Address City/State/ZIP Code Phon e Number [facility] [address] [place] [address] SERVICES [facility] [address] [place] [address] documented in this encounter Visit Diagnoses Not on filedocumented in this encounter Care Teams Safety Leader Relationship Specialty Start Date End Date Suman Montgomery MD PCP - General 06/04/09 [address] [place] [phone] documented as of this encounter
--- OUTSIDE RECORDS SUMMARY | 2022-01-21 00:30 | XMS_ITS | Encounter Summary ---
:1955 Author Organization [facility] Address [address] [place] [address] Care Team Providers Name Role Phone Suman Montgomery MD Primary Care Provider [phone] Encounter Details Date Type Department Care Team Description 06/23/2021 Lab Requisition [facility] Outr Resulting Lab, Pathology & Laboratory Provider [facility] [address] [place], [place] [address] Social History Tobacco Use Types Packs/Day Years Used Date Never Assessed Sex Assigned at Date Recorded Not on file documented as of this encounter Plan of Treatment Not on filedocumented as of this encounter Procedures Procedure Name Priority Date/Time Associated Diagnosis Comme nts THYROID ANTIBODIES Routine 06/23/2021 7:21 EST Re sults for this procedure are i n the results section. documented in this encounter Results (ABNORMAL) THYROID ANTIBODIES (06/23/2021 7:21 EST) Pathologist Sig nature Anti-Thyroglobulin 56 <=60 U/mL [facility] Thyroperoxidase Ab 1,228 (H) <=60 U/mL [facility] Specimen Blood - Venous blood (substance) Performing Organization Address City/State/ZIP Code Phon e Number [facility] [address] [place] [address] SERVICES documented in this encounter Visit Diagnoses Not on filedocumented in this encounter Care Teams Clinical Psychiatrist Relationship Specialty Start Date End Date Suman Montgomery MD PCP - General 06/04/[address] [place] [phone] documented as of this encounter
--- OUTSIDE RECORDS SUMMARY | 2022-01-21 00:30 | XMS_ITS | Clinical Summary ---
:[address] [facility] Address [address] [place] [address] Care Team Providers Name Role Phone Suman Montgomery MD Primary Care Provider [phone] Social History Tobacco Use Types Packs/Day Years Used Date Never Assessed Sex Assigned at Date Recorded Not on file Plan of Treatment Not on file Care Teams Contract Paralegal Relationship Specialty Start Date End Date Suman Montgomery MD PCP - General 06/04/[address] [place] [phone]
--- OUTSIDE RECORDS SUMMARY | 2022-01-21 00:30 | XMS_ITS | Encounter Summary ---
:1955 Author Organization [facility] Address [address] [place] [address] Care Team Providers Name Role Phone Suman Montgomery MD Primary Care Provider [phone] Encounter Details Date Type Department Care Team Description 04/18/2006 Results Only [facility] - Barbara Richter son, Kelsie Harrison, CHUTE OPERATOR conversion [address] [place] [phone] (Wo rk) Social History Tobacco Use Types Packs/Day Years Used Date Never Assessed Sex Assigned at Date Recorded Not on file documented as of this encounter Plan of Treatment Not on filedocumented as of this encounter Procedures Procedure Name Priority Date/Time Associated Diagnosis Comme nts CYTOPATHOLOGY Routine 04/18/2006 0:00 EST Results for this procedure are i n the results section . documented in this encounter Results CYTOPATHOLOGY (04/18/2006 0:00 EST) Pathology Report: CYTOPATHOLOGY REPORT [facility] Reports generated via electronic interface contain lucas ginal data; however they are lacking the format of the original re port. Caution should be taken when reading/interpreting unfo rmatted reports. Name: ? OPAL BRAVO ? Accession #: ? [id number] : ? 1955 (Age: 50) ??F ?Collect Date: ? 04/07 Location: ? [facility] ? Receive Date : ? 04/19/2006 Provider: ?KELSIE COOK CHUTE OPERATOR Copy to: ? Specimen/Source: ? ThinPrep Pap Test, Cervix/Endocervix, processed on [employer] ThinPrep Imaging System, with manual evaluation Last Menstrual Period: ? 04/06/06 Other: ? HPVA - HPV testing requested if ASC-US on the current ThinPrep Pap test. ? SPECIMEN ADEQUACY ? Satisfactory for Evaluation - transformation zone component present GENERAL CATEGORIZATION ? Negative for Intraepithelial Lesion or Malignan cy ? Document reviewed and electronically signed by: ? CHAN Urban(ASCP) ? Report Date: ??04/25/2006 13:15 End of Report Specimen Performing Organization Address City/State/ZIP Code Phon e Number [facility] [address] [place] [address] SERVICES [facility] [address] [place] [address] documented in this encounter Visit Diagnoses Not on filedocumented in this encounter Care Teams Urogynaecologist Relationship Specialty Start Date End Date Suman Montgomery MD PCP - General 06/04/09 [address] [place] [phone] documented as of this encounter
--- OUTSIDE RECORDS SUMMARY | 2022-01-21 00:30 | XMS_ITS | Encounter Summary ---
:1955 Author Organization [facility] Address [address] [place] [address] Care Team Providers Name Role Phone Suman Montgomery MD Primary Care Provider [phone] Encounter Details Date Type Department Care Team Description 10/27/2020 Lab Requisition [facility] Sparkle Smart En jessica for screening for malignant neoplasm of cervix; Pathology & L, RN ER Encounter for screening for human papill omavirus (HPV) Laboratory Medicine [address] [place] [phone] Social History Tobacco Use Types Packs/Day Years Used Date Never Assessed Sex Assigned at Date Recorded Not on file documented as of this encounter Plan of Treatment Not on filedocumented as of this encounter Procedures Procedure Name Priority Date/Time Associated Diagnosis Comme nts PAP TEST Today 10/26/2020 11:00 Encounter for Results fo r this EDT screening for procedure are in malignant neoplasm of the re sults cervix section. Encounter for screening for human papillomavirus (HPV) HUMAN PAPILLOMAVIRUS Today 10/26/2020 11:00 Encounter for Re sults for this (HPV) DETECTION-HIGH EDT screening for proced ure are in RISK TYPES malignant neoplasm of the re sults cervix section. Encounter for screening for human papillomavirus (HPV) documented in this encounter Results HUMAN PAPILLOMAVIRUS (HPV) DETECTION-HIGH RISK TYPES (10/26/2020 11:00 EDT) Human Papillomavirus NegativeComment: No Negative [facility] (HPV) Detection-High E6 or E7 mRNA is CENTER LABORATOR Y Types detected from HPV SERVICES types 16,18,31,33,35,39,45 ,51,52,56,58,59,66, and 68 by recovery specialist mediated amplification. Specimen Pap Test - Cervix and/or Endocervix Performing Organization Address City/State/ZIP Code Phon e Number [facility] [address] [place] [address] SERVICES PAP TEST (10/26/2020 11:00 EDT) Specimens A. Cervix and/or [facility] Endocervix , ThinPrep CENTER Imaging System with LABORATORY Manual Evaluation SERVICES Specimen Adequacy Satisfactory for [facility] Evaluation - CENTER transformation zone LABORATORY component present SERVICES General Negative for [facility] intraepithelial [place] lesion or malignancy LABORATORY SERVICES Attestation . [facility] signed by Ryan martin, LABORATORY CHAN Peres( CP) SERVICES on 11/05/2020 at 1715 Clinical History See below [facility] SERVICES HPV The result for the Human Pap illomavirus (HPV) Detection-High Risk Types is Negative. No E6 or E7 mRNA is detected from HPV types 16,18,31,33,35,39,45,51,52,56,58,59,66, and 68 by recovery specialist mediated [facility] amplification.Testing was pe rformed on specimen [id number] and was resulted on 11/05/2020 1714 EDT by ESTELA, LAB INSTRUMENT RESULTS IN [facility] SERVICES Performing Lab [facility] SERVICES Scanned Images [facility] SERVICES Specimen Pap Test - Cervix and/or Endocervix Performing Organization Address City/State/ZIP Code Phon e Number [facility] [address] [place] [address] SERVICES documented in this encounter Visit Diagnoses Diagnosis Encounter for screening for malignant ne oplasm of cervix Screening for malignant neoplasm of the cervix Encounter for screening for human papill omavirus (HPV) Special screening examination for human papillomavirus (HPV) documented in this encounter Care Teams Chief Nuclear Medicine Technologist Relationship Specialty Start Date End Date Suman Montgomery MD PCP - General 06/04/[address] [place] [phone] documented as of this encounter
--- OUTSIDE RECORDS SUMMARY | 2022-01-21 00:30 | XMS_ITS | Encounter Summary ---
:1955 Author Organization [facility] Address [address] [place] [address] Care Team Providers Name Role Phone Suman Montgomery MD Primary Care Provider [phone] Encounter Details Date Type Department Care Team Description 03/23/2005 Results Only [facility] - Barbara Richter son, Kelsie Harrison, CASTER INVESTMENT CASTING conversion [address] [place] [phone] (Wo rk) Social History Tobacco Use Types Packs/Day Years Used Date Never Assessed Sex Assigned at Date Recorded Not on file documented as of this encounter Plan of Treatment Not on filedocumented as of this encounter Procedures Procedure Name Priority Date/Time Associated Diagnosis Comme nts CYTOPATHOLOGY Routine 03/23/2005 0:00 EST Results for this procedure are i n the results section . documented in this encounter Results CYTOPATHOLOGY (03/23/2005 0:00 EST) Pathology Report: CYTOPATHOLOGY REPORT [facility] Reports generated via electronic interface contain lucas ginal data; however they are lacking the format of the original re port. Caution should be taken when reading/interpreting unfo rmatted reports. Name: ? OPAL BRAVO ? Accession #: ? [id number] : ? 1955 (Age: 49) ??F ?Collect Date: ? 03/08 Location: ? [facility] ? Receive Date : ? 03/24/2005 Provider: ?KELSIE COOK CASTER INVESTMENT CASTING Copy to: ? Specimen/Source: ? ThinPrep Pap Test, Cervix/Endocervix, processed on [employer] ThinPrep Imaging System, with manual evaluation Last Menstrual Period: ? 03/14/05 ? SPECIMEN ADEQUACY ? Satisfactory for Evaluation - transformation zone component present GENERAL CATEGORIZATION ? Negative for Intraepithelial Lesion or Malignan cy INTERPRETATION ? Shift in violeta present suggestive of bacterial vaginosis. ? Document reviewed and electronically signed by: ? CHAN Murguia(ASCP) ? Report Date: ??03/28/2005 12:28 End of Report Specimen Performing Organization Address City/State/ZIP Code Phon e Number [facility] [address] [place] [phone] SERVICES [facility] [address] [place] [address] documented in this encounter Visit Diagnoses Not on filedocumented in this encounter Care Teams Flying Instructor Relationship Specialty Start Date End Date Suman Montgomery MD PCP - General 06/04/09 [address] [place] [phone] documented as of this encounter
--- NOTE | 2022-02-08 08:08 | DI.MAMMO_ITS ---
Exam(s) MAMMO SCREENING EXAM: MAMMO SCREENING CLINICAL HISTORY: screening,z12.39. TECHNIQUE: Bilateral full field digital CC and MLO mammographic images were obtained with 3D tomosyn thesis and utilizing computer aided detection (CAD). COMPARISON: Prior mammograms were reviewed, the most recent being October 2020. FINDINGS: There has been no significant change in the appearance and distribution of the fibroglandular tissue. There are no new spiculated masses nor malignant appearing microcalcification groups. There is no significant architectural distortion nor skin thickening-retraction. IMPRESSION: No radiographic evidence of malignancy. BI-RADS Category 1 - Negative Breast Density - Category B - Scattered areas of fibroglandular density Breast density Category C or D implies that the patient has dense breast tissue. Dense breast tissue can make it harder to find cancer on a mammogram. Dense breast tissue is also associated with an incr eased risk of breast cancer. This information about the result of the mammogram report was provided to the patient to raise their awareness. Use this report when you speak with the patient about their risks for breast cancer, which includes their family history. At that time, you may recommend additional screening tests (Ultrasoun d or MRI) as these tests may add significant information. A negative radiographic report should not delay biopsy if a dominant or clinically suspicious mass is present. Up to ten percent of cancers are not identified on mammography. A negative report may reinforce clinical impression. Adenosis and dense breasts may obscure an underlying neoplasm. False positive reports average 6 to 10%. Patient will receive a letter notifying them of these results.
== END ==
PROVIDERS: PCP Nurse Practitioner Adult Health; Visit Provider Nurse Practitioner Adult Health
DX: M81.0 Age-related osteoporosis without current pathological fracture (principal); E55.9 Vitamin D deficiency, unspecified; Z83.49 Family history of other endocrine, nutritional and metabolic diseases; Z12.31 Encounter for screening mammogram for malignant neoplasm of breast
CPT/HCPCS: 36415; 77063; 77067; 82306; 84439; 84443

== ENCOUNTER 2022-02-18 13:53 | Outpatient (CLI) | payer MEDICAID, SELFPAY ==
--- NOTE | 2022-02-18 13:45 | RT.EKG_ITS ---
APPROVED REPORT Exam: Resting ECG Reason for Exam: pre-op Patient Location: O HR:73 bpm ECG Measurements Heart Rate 73 AXIS UT 185 P 42 QRSd 85 QRS 14 QT 388 T 32 QTc 428 Conclusion Sinus rhythm...normal P axis, V-rate 50- 99 Normal Electrocardiogram
== END 2022-02-18 13:54 | disposition home or self-care (01) ==
LOC: DI.KIM 13:54
PROVIDERS: PCP Nurse Practitioner Adult Health; Visit Provider Nurse Practitioner Adult Health
DX: M17.11 Unilateral primary osteoarthritis, right knee (principal); M17.12 Unilateral primary osteoarthritis, left knee; Z01.818 Encounter for other preprocedural examination
CPT/HCPCS: 93010

== ENCOUNTER 2022-03-04 16:02 | Outpatient (REF) | payer MEDICAID, SELFPAY ==
[2022-03-06 14:57] LABS: COVID-19 RT-PCR UVMMC Result Negative (Negative)
== END 2022-03-04 16:03 | disposition home or self-care (01) ==
LOC: LBN 16:02
PROVIDERS: PCP Nurse Practitioner Adult Health; Visit Provider Nurse Practitioner Adult Health
DX: H92.02 Otalgia, left ear (principal); R09.89 Other specified symptoms and signs involving the circulatory and respiratory systems; Z20.822 Contact with and (suspected) exposure to COVID-19
CPT/HCPCS: U0003

== ENCOUNTER → 2022-03-09 11:16 | Outpatient (CLI) | payer MEDICAID, SELFPAY ==
--- NOTE | 2022-03-09 09:00 | DI.RAD_ITS ---
Exam(s) XR CHEST 2V PA LATERAL EXAM: XR CHEST 2V PA LATERAL CLINICAL HISTORY: ? infiltrate, productive cough,r05.8 TECHNIQUE: 2D digital imaging was performed. COMPARISON: CR CHEST 2 VIEWS PA,LAT from 02/02/2015 FINDINGS: HEART: Normal size. Aorta: Mildly tortuous. PULMONARY VASCULATURE: Normal. LUNGS: Clear. PLEURAL SPACE: No pleural effusion or pneumothorax. BONE:Degenerative disc changes. IMPRESSION: No acute abnormality. DATA REPOSITORY: RADIATION DOSE DELIVERED:
== END ==
PROVIDERS: PCP Nurse Practitioner Adult Health; Visit Provider Nurse Practitioner Adult Health
DX: R05.8 Other specified cough (principal)
CPT/HCPCS: 71046

== ENCOUNTER 2022-07-04 12:11 | Outpatient (CLI) | payer MEDICAID, SELFPAY ==
--- NOTE | 2022-07-04 10:45 | DI.RAD_ITS ---
Exam(s) XR HIP RT COMPLETE AP PELVIS EXAM: XR HIP RT COMPLETE AP PELVIS CLINICAL HISTORY: RT HIP PAIN-M25.551, FALL-W19.XXXA. TECHNIQUE: 2D digital imaging was performed of the right hip. Three images were obtained. AP pelvis and lateral right hip views were obtained. COMPARISON: CT PELVIC/LOWER ABD WITHOUT CONT from 08/03/2016 CR XR DEXA BONE DENSITY W/WO RIGO from 03/18/2021 FINDINGS: BONES: No acute or healing fracture is present. No bony destructive lesion is seen. JOINTS: No dislocation present. SOFT TISSUE: Soft tissue calcifications are again seen in the right pelvis. IMPRESSION: No acute fracture or dislocation is seen. DATA REPOSITORY: RADIATION DOSE DELIVERED:
--- OUTSIDE RECORDS SUMMARY | 2022-07-04 12:13 | XMS_ITS | Continuity of Care Document ---
Author Name Unknown Organization [facility] Ambulatory Clinics Address [address] [place] [address] Care Team Providers Care Communications Advisor Name Role Phone Unavailable, Physician Primary Care Physician Un available Encounter [facility] NBR [id number] Date(s): 05/25/22 - 05/25/22 [facility] [address] [place] [address]- [place] Encounter Diagnosis Bilateral osteoarthritis of knees(Discharge Diagnosis) - 05/25/22 Post-traumatic osteoarthritis of right knee(Discharge Diagnosis) - 05/25/22 Discharge Disposition: Home or Self Care Attending Physician: Christi Wiseman APRN Allergies, Adverse Reactions, Alerts Substance Reaction Severity Status lidocaine Anaphylactic reaction Severe Active sulfamethoxazole-trimethoprim Severe Active sulfa drugs Rash Moderate Active amide-type local anesthetics Unknown Active SUMAtriptan Throat discomfort Moderate Active Anchovy Throat swelling Severe Active Functional Status 05/25/22 Other exposure to Infectious Disease Non e Medications acyclovir 400 mg oral tablet 400 mg = 1 tab, Oral, BID, PRN itching/rash, # 14 tab, 0 Refill(s) Start Date: 03/08/22 Status: Ordered B 100 Complex oral tablet 1 tab, Oral, Daily, # 100 tab, 0 Refill(s) Start Date: 05/25/22 Status: Ordered diclofenac sodium 50 mg oral delayed release tablet 50 mg = 1 tab, Oral, TID, # 90 tab, 0 Refill(s), Pharmacy: [id number] Start Date: 05/25/22 Status: Ordered hydrOXYzine hydrochloride 25 mg oral tablet 25 mg = 1 tab, Oral, QID, PRN as needed for anxiety, # 40 tab, 0 Refill(s) Start Date: 03/08/22 Status: Ordered ibuprofen 200 mg oral tablet QID, 0 Refill(s) Start Date: 05/25/22 Status: Ordered ketoconazole 2% topical shampoo 240 mL, APPLY TO AFFECTED AREA(S) ONCE DAILY DIRECTED NEEDED FOR ADRIANA DERM, 0 Refill(s) Start Date: 05/25/22 Status: Ordered magnesium (as chloride)-calcium (as carbonate) 71 mg-118 mg oral delayed release tablet 2 tab, Oral, Daily, # 60 tab, 0 Refill(s) Start Date: 05/25/22 Status: Ordered mometasone 50 mcg/inh nasal spray 2 sprays, Nasal, BID, # 17 g, 0 Refill(s) Start Date: 03/08/22 Status: Ordered ProAir HFA 90 mcg/inh inhalation aerosol 1 puffs, Inhale, QID, PRN as needed for wheezing, # 8.5 g, 0 Refill(s) Start Date: 03/08/22 Status: Ordered Tylenol Extra Strength 500 mg oral tablet QID, 2 Unknown, 0 Refill(s) Start Date: 05/25/22 Status: Ordered Vitamin D with Minerals oral tablet 1 tab, Oral, Daily, # 30 tab, 0 Refill(s) Start Date: 03/08/22 Status: Ordered Vitamin D3 1000 intl units oral capsule 25 mcg = 1 cap, Oral, Daily, # 75 cap, 0 Refill(s) Start Date: 05/25/22 Status: Ordered zinc (as gluconate) 30 mg oral tablet 30 mg = 1 tab, Oral, Daily, # 100 tab, 0 Refill(s) Start Date: 05/25/22 Status: Ordered Problem List Condition Confirmation Course Effective Dates Status H ealth Status Informant Bilateral osteoarthritis of knees Confirmed Active Chronic sinusitis Confirmed Active GERD - Gastro-esophageal reflux disease Confirmed Active History of COVID-19 Confirmed 09/10/21 Active History of osteopenia Confirmed Active HSV - Herpes simplex virus Confirmed Active Seasonal allergy Confirmed Active Vitamin D deficiency Confirmed Active Procedures Procedure Date Related Diagnosis Body Site Status Tubal ligation 02/2001 Completed Rhinoplasty 1982 Completed Arthroscopic knee operation Completed section 1 Comple geoffrey Manipulation of deviated nasal septum 2 Completed 1x2 2surgery Vital Signs Most recent to oldest [Reference Range]: 1 Peripheral Pulse Rate [60-100 bpm] 80 bp m (05/25/22 9:02 AM) Blood Pressure [90-140/60-90 mmHg] 134/7 0mmHg (05/25/22 9:02 AM) Weight 79.38 kg (05/25/22 9:02 AM) Weight Measured (lbs) 175.003 lb (05/25/22 9:02 AM) Height 158.75 cm (05/25/22 9:02 AM) Height/Length Measured (inches) 62.5 inc h (05/25/22 9:02 AM) BSA Measured 1.87 m2 (05/25/22 9:02 AM) Body Mass Index 31.5 kg/m2 (05/25/22 9:02 AM) Social History Social History Type Response Tobacco Former tobacco user Tobacco Use:. 1, 2 Sex 1quit 35 years ago 2Quit 10+ years ago Physician Outpatient Note * Christi Wiseman, CEMENTER: PERFORM, MODIFY Event Display: Office Clinic Note Physician Authored Date: [id number] OPAL BRAVO Christy :1955 Age:66 years Sex:Female Visit Date:05/25/2022 Primary Care Physician: Unavailable, Physician Chief Complaint Bilateral Knee pain History of Present Illness Chief complaint: Right knee pain,??Opal is well-known to this clinic,??was last evaluated by Dr. Wiseman September 08, 2021 for bilateral knee pain.?? The right knee however is a Worker's Compensation injury.?? Original injury was August 2012,??she was treated in April [address] Garrett??and went through knee arthroscopy??over the years she has progressed??with??osteoarthritis of this knee.?? Knee replacement has been discussed several times,??most recently she was scheduled for right total knee arthroplasty on 03/23/2022??with Dr. Wiseman.?? This was canceled due to??lung infection??by her primary care physician.?? Since then??we have??reached back out to Opal to try to get her back onthe surgical schedule, she tells us that her lungs are still not up to snuff, has not been cleared to proceed by her primary care physician.?? She does have significant arthritic change of both knees.?? She had dropped off some??paperwork for??disability??about a month ago.?? At that point we had??t ried to get her rescheduled for definitive management of her knee arthritis??being total knee arthroplasty.?? This is when she let us know she has not been cleared by her primary care physician to goforward with surgery as of yet. ?? She comes in today stating that both knees are bothersome, her left knee was never bothersome but is the right knee started to progress with posttraumatic osteoarthritis the left knee became more more??discomfort and unable to support her.?? 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 ??Having to drive??hours at a time.?? She has been unable to??do these things,standing for more than 30 minutes is uncomfortable, and going from sit to stand is very uncomfortable and stiff,??driving for any period of time??causes swelling and pain,??she is unable to carry??anything over 10 pounds??due to loading the right knee. ??At this point she is really very??limited onwhat she can do for work.?? Here today for evaluation suggestions on care going forward. ??She tries to limit anti-inflammatories due to GERD. ?? Duration: Since 2012 ?? Cause: Work related injury which is well documented??within her Worker's Compensation file ?? Treatment: Anti-inflammatories, bracing, physical therapy, activity modification, nonsteroidal anti-inflammatories as well as injections in the past. ?? Symptoms: Pain, intermittent swelling, catching sensation,??achiness. Review of Systems Constitutional:?No??fevers,?No??chills,?No??sweats Eye:?No??recent visual problems ENT:?No??ear pain,?No??nasal congestion,?No??sore throat Respiratory:?No??shortness of breath,?No??cough Cardiovascular:?No??Chest pain,?No??palpitations,?No??syncope Gastrointestinal:?Nonausea,?No??vomiting,?No??diarrhea Genitourinary:?No??hematuria Babak/Lymph:?No??bruising tendency,?No??swollen lymph glands Endocrine:?No??excessive thirst,??No??excessive hunger Musculoskeletal:??No??back pain,??No??neck pain,??Positive for??joint pain,??No??muscle pain,??Positive for??decreased range of motion Integumentary:?No??rash,?No??pruritus,?No??abrasions Neurologic: Alert & oriented X 4 Psychiatric:?No??anxiety,?No??depression Physical Exam Vitals & Measurements HR:??80??(Peripheral)?? BP:??134/70?? SpO2:??97%?? HT:??158.75??cm?? WT:??79.38??kg?? BMI:??31.5?? Pain Score:??8?? BSA:??1.87?? General: ??appears stated age, well dressed HEENT: no loss of hearing, normocephalic, EOMs intact Neuro: ??grossly intact, if indicated see specific neurology exam Psych: ??alert and oriented to place and time, pleasant, cooperative Dermatology: ??no gross open areas of skin-see exam of limb for specifics Lymphatics: ??no lymphedema of affected limb Gait: Very antalgic utilizing a cane Vascular: ??pulses distally of limb are 2+?? Musculoskeletal: Right knee: To inspection there is obvious varus deformity, she is lacking full extension by 10 degrees, flexion today is limited to 100 significant tenderness to palpation of the medial joint line less so at the lateral joint line patellar prehension is negative, patellar grind ispositive there is significant tenderness??in the popliteal fossa as well.?? Palpable crepitance with flexion to extension. Assessment/Plan 1.??Post-traumatic osteoarthritis of right knee??M17.31 Between reviewing her prior??visit with Dr. Wiseman September 2021, her surgery being canceled for lung??infection,??and reviewing her x-ray findings I spent 1 hour, 60 minutes, reviewing her??history, we spent??35 minutes together in the office today with physical exam, going over history,??the fact that she??is finding it difficult to do her daily activities as well as her job due to increasing??and worsening??right knee osteoarthritis due to work related injury.?? At this point??she is unable to??do her entirety of her job, I indicated this on her Worker's Compensation form, we will be unable however to do Celebrex as she does have a sulfa allergy so I did switch that prescription to diclofenac.?? I am suggesting FCE at this point,??I believe that her primary care physician is seeing her next week, if she is cleared for surgery then the definitive fix would be attainable??if she has not cleared for surgery FCE is needed??for a functional capacity exam??and really looking at Opal and her inability to fulfill her job.?? All of this is discussed with her at length,??again we did discuss the definitive fix would be knee replacement however if she is medically not optimized and clearedfor that procedure??then that would be her specific disability at this point.?? Worker's Compensation form is filled out again??and??I did decrease her activity and ability??to be standing, driving,??bending stooping??walking on uneven ground up and down hill??and carrying anything of any weight??due to the significant and worsening osteoarthritis of her right knee. 2.??Bilateral osteoarthritis of knees??M17.0 Problem List/Past Medical History Ongoing Bilateral osteoarthritis of knees Chronic sinusitis GERD - Gastro-esophageal reflux disease History of COVID-19 History of osteopenia HSV - Herpes simplex virus Seasonal allergy Vitamin D deficiency Historical No qualifying data Procedure/Surgical History ???Tubal ligation (02/2001)???Rhinoplasty (1982)???Arthroscopic knee operation??? section???Manipulation of deviated nasal septum Medications acyclovir 400 mg oral tablet, 400 mg= 1 tab, Oral, BID, PRN B 100 Complex oral tablet, 1 tab, Oral, Daily hydrOXYzine hydrochloride 25 mg oral tablet, 25 mg= 1 tab, Oral, QID, PRN ibuprofen 200 mg oral tablet, QID ketoconazole 2% topical shampoo magnesium (as chloride)-calcium (as carbonate) 71 mg-118 mg oral delayed release tablet, 2 tab, Oral, Daily mometasone 50 mcg/inh nasal spray, 2 sprays, Nasal, BID ProAir HFA 90 mcg/inh inhalation aerosol, 1 puffs, Inhale, QID, PRN Tylenol Extra Strength 500 mg oral tablet, QID Vitamin D with Minerals oral tablet, 1 tab, Oral, Daily Vitamin D3 1000 intl units oral capsule, 25 mcg= 1 cap, Oral, Daily zinc (as gluconate) 30 mg oral tablet, 30 mg= 1 tab, Oral, Daily Allergies Anchovy??(Throat swelling) lidocaine??(Anaphylactic reaction) sulfamethoxazole-trimethoprim SUMAtriptan??(Throat discomfort) sulfa drugs??(Rash) amide-type local anesthetics Social History Alcohol 1-2 times per month Electronic Cigarette/Vaping Electronic Cigarette Use: Never. Tobacco Former tobacco user Tobacco Use:.- Comments: quit 35 years ago Quit 10+ years ago Family History Arthritis: Father. Cancer: Grandmother (P). Heart attack: Mother. High cholesterol: Mother. Hypertension: Mother and Father. Family Member(s): ?? GPARENT, at age: Unknown. Cause of : Health Maintenance ?Pending??(in the next year) ?Due?Adult Wellness Exam due?05/25/22?and every 1?years ?Alcohol Use Screening due?05/25/22?and every 1?years ?Breast Cancer Screening due?05/25/22?and every 2?years ?Cervical Cancer Screening due?05/25/22?Variable frequency ?Colorectal Cancer Screening due?05/25/22?Variable frequency ?Depression Screening due?05/25/22?and every 1?years ?Glaucoma Screening due?05/25/22?and every 1?years ?HIV Screening due?05/25/22?and every 1?years ?Hepatitis C Screening due?05/25/22?One-time only ?Lipid Screening due?05/25/22?and every 5?years ?Satisfied??(in the past 1 year) ?Satisfied?Body Mass Index on?05/25/22.?Satisfied by Ashleigh Chandler ?? Electronically Signed on 05/25/22 03:10 PM Christi Wiseman APRN Reviewed by: Weston Wiseman DO Patient Care team information Personnel Name: Unavailable, Physician
--- OUTSIDE RECORDS SUMMARY | 2022-07-04 12:14 | XMS_ITS ---
Author Name Ed Hanks Address [address] [place], [place] [id number] Organization [facility] Address [address] [place], [place] [id number] Care Team Providers Care Pastry Cook Name Role Phone SigourneyDiane pererane Unavailable [phone] PROBLEMS Type Condition ICD9-CM Code BQT86-VE Code Onset Dates Condition Status SNOMED Code Problem Postnasal drip R09.82 Active 86761694 Problem Cough R05 Active 80986369 Problem Pressure and pain of left side of face R51.9 Active Problem Xerostomia K11.7 Active 90370184 Problem Chronic sinusitis, unspecified J32.9 Active 02806676 Problem Globus sensation F45.8 Active 2530319 08 Problem Change in voice R49.9 Active 39039896 5 Problem Cervicalgia M54.2 Active 62786974 ALLERGIES Substance Reaction Event Type Date Status sulfa Unknown Drug Allergy Feb, Active Omnaris headache/sore throat Drug Allergy Feb, Active Lidocaine Unknown Drug Allergy Feb, Active ENCOUNTERS Encounter Location Date Diagnosis [facility] [address] [place] [id number] Feb, Xerostomia K11.7 ; Pressure and pain of left side of face R51.9 and Cervicalgia M54.2 [facility] [address] [place] [id number] Nov, Postnasal drip R09.82 ; Change in voice R49.9 and Globus sensation F45.8 [facility] [address] [facility] [address] [place], [place] [phone] Aug, Chronic sinusitis, unspecified J32.9 ; Cough R05 and Postnasal drip R09.82 [facility] [address] [facility] [address] [place], [place] [phone] May, Chronic sinusitis, unspecified J32.9 ; Cough R05 and Postnasal drip R09.82 [facility] [address] [facility] [address] [place] [id number] Apr, [facility] [address] [facility] [address] [place] [id number] Apr, Chronic sinusitis, unspecified J32.9 ; Cough R05 and Postnasal drip R09.82 [facility] [address] [id number] Apr, [facility] [address] [facility] [address] [place] [id number] Apr, IMMUNIZATIONS No Known Immunizations SOCIAL HISTORY Never Assessed REASON FOR REFERRAL FUNCTIONAL STATUS PLAN OF CARE Activity Details VITAL SIGNS Height 5 ft 3 in in 2020-03-03 Height 5 ft 3 in in 2015-11-11 Height 5 ft 3 in in 2015-08-12 Height 5 ft 3 in in 2015-05-13 Height 5 ft 3 in in 2015-04-13 Weight 185 lbs 2020-03-03 Weight 177 lbs 2015-11-11 Weight 182 lbs 2015-08-12 Weight 182 lbs 2015-05-13 Weight 182 lbs 2015-04-13 Heart Rate 72 /min 2020-03-03 Heart Rate 72 /min 2015-11-11 Heart Rate 76 /min 2015-08-12 Heart Rate 70 /min 2015-05-13 Heart Rate 72 /min 2015-04-13 Oximetry 97 2020-03-03 Respiratory Rate 14 /min 2020-03-03 Respiratory Rate 15 /min 2015-11-11 Respiratory Rate 15 /min 2015-08-12 Respiratory Rate 15 /min 2015-05-13 Respiratory Rate 15 /min 2015-04-13 BMI 32.77 kg/m2 2020-03-03 BMI 31.35 kg/m2 2015-11-11 BMI 32.24 kg/m2 2015-08-12 BMI 32.24 kg/m2 2015-05-13 BMI 32.24 kg/m2 2015-04-13 Blood pressure systolic 122 mm Hg Blood pressure diastolic 86 mm Hg 2020-02 MEDICATIONS Medication Instructions Dosage Frequency Start Date End Date Duration Status Nasonex 50 MCG/ACT Nasally Once a day 2 sprays in each nostril 24h Aug, 30 day(s) Active Acyclovir 400 MG Orally Twice a day 1 tablet 12h Active Ibuprofen 600 MG Orally Three times a day 1 tablet with food or milk as needed 8h Active Albuterol Sulfate HFA 108 (90 Base) MCG/ACT Inhalation every 4 hrs 1 puff as needed 4h Active Ketoconazole 2 % Active PROCEDURES Procedure Date Ordered Result Body Site DIAGNOSTIC FLEXIBLE LARYNGOSCOPY November 11, 2015 DIAGNOSTIC FLEXIBLE LARYNGOSCOPY Mar 03, 2020 RESULTS No Results REASON FOR VISIT ENT-6WK F/U, Left maxillary sinus pressure and pain, Chronic dry mouth, Cervicalgia, ENT-6 [place] F/U, change in voice, globus sensation, intermittent cough, chronic postnasal drip, cough, postnasal drip, chronic nasal problems, [facility] Update, Referral Insurance Providers Health Insurance Type Health Plan Insurance Address Health Plan Insurance Phone Health Plan Insurance Name Health Plan Coverage Dates Member ID Patient Relationship to Subscriber Patient Address Patient Phone Patient Name Patient Date of Subscriber ID Subscriber Name Subscriber Date of Group No [place] [address] [facility] [id number] [place] self Catalina Hermosillo [id number] [employer] [place] [address] [facility] [address] [employer] self Catalina Hermosillo [id number]
== END 2022-07-04 12:31 ==
LOC: DI 12:12
PROVIDERS: PCP Nurse Practitioner Adult Health; Visit Provider Nurse Practitioner
DX: M25.551 Pain in right hip (principal); W19.XXXA Unspecified fall, initial encounter
CPT/HCPCS: 73502

== ENCOUNTER 2022-09-16 01:43 | Outpatient (CLI) | payer MEDICAID, SELFPAY ==
[2022-09-16 08:51] LABS: ALT 27 U/L (14-59); AST 18 U/L (15-37); Albumin 3.7 g/dL (3.4-5.0); Alkaline Phosphatase 90 U/L (46-116); Anion Gap 7.5 mmol/L (3-11); BUN 17 mg/dL (7-18); Bilirubin, Total 0.4 mg/dL (0.2-1.0); CO2 26.5 mmol/L (21.0-32.0); CREATININE 0.8 mg/dL (0.55-1.02); Calcium 9.1 mg/dL (8.5-10.1); Chloride 107 mmol/L (98-107); Estimated GFR 82.23 (mL/min/1.73m2); FREE T4 1.02 ng/dL (0.76-1.46); Glucose 109 mg/dL (74-106); Potassium 4.2 mmol/L (3.5-5.1); Sodium 141 mmol/L (136-145); TSH (W/Ref FT4) 4.83 uIU/mL (0.36-3.74); Total Protein 7.1 g/dL (6.4-8.2); Vitamin D 25 Total 45.6 ng/mL (30-100)
[2022-09-16 10:50] LABS: Calculated LDL 164 mg/dL (<100); Cholesterol 231 mg/dL (<200); Folate 17.5 ng/mL (8.6-20.0); HDL Cholesterol 49 mg/dL (40-60); Triglyceride 93 mg/dL (<150); Vitamin B12 376 pg/mL (193-986)
[2022-09-16 18:57] LABS: T3, Total 162 ng/dL (97-169)
== END 2022-09-16 01:44 | disposition home or self-care (01) ==
PROVIDERS: PCP Nurse Practitioner Adult Health; Visit Provider Nurse Practitioner Adult Health
DX: E78.00 Pure hypercholesterolemia, unspecified (principal); R73.01 Impaired fasting glucose; E53.8 Deficiency of other specified B group vitamins; E55.9 Vitamin D deficiency, unspecified; R76.8 Other specified abnormal immunological findings in serum; M85.88 Other specified disorders of bone density and structure, other site
CPT/HCPCS: 36415; 80053; 80061; 82306; 82607; 82746; 83036; 83735; 84439; 84443; 84480

== ENCOUNTER 2022-11-17 01:59 | Outpatient (CLI) | payer MEDICARE, MEDICAID, SELFPAY ==
--- NOTE | 2022-11-17 08:00 | DI.RAD_ITS ---
Exam(s) XR FOOT RT COMPLETE EXAM: XR FOOT RT COMPLETE CLINICAL HISTORY: pain right foot,M79.671. TECHNIQUE: 2D digital imaging was performed. COMPARISON: No exams were available for comparison FINDINGS: 3 views No evidence of fracture or diastasis of the Lisfranc joint. Small inferior calcaneal spur noted. Castro ne density normal. No osseous lesions. No erosions. Great toe metatarsophalangeal joint appears un remarkable. No osseous tarsal coalition. No pes planus. IMPRESSION: No significant radiographic findings. DATA REPOSITORY: RADIATION DOSE DELIVERED:
== END 2022-11-17 02:19 ==
PROVIDERS: PCP Nurse Practitioner Adult Health; Visit Provider Nurse Practitioner
DX: M79.671 Pain in right foot (principal); M77.31 Calcaneal spur, right foot
CPT/HCPCS: 73630

== ENCOUNTER → 2023-05-04 00:14 | Outpatient (CLI) | payer MEDICARE, SELFPAY ==
--- NOTE | 2023-05-04 08:15 | DI.MAMMO_ITS ---
Exam(s) MAMMO SCREENING EXAM: MAMMO SCREENING CLINICAL HISTORY: screening,z12.39 TECHNIQUE: Mammograms were interpreted according to the usual protocol including computer analysis w [employer] CAD system, tomosynthesis and C-view imaging. COMPARISON: 2013 through 2021 FINDINGS: The breasts are composed of scattered fibroglandular densities, Breast Density category B. No suspicious masses or suspicious microcalcifications are seen. No skin thickening or abnormal axillary lymph nodes are seen. There has been no significant change from prior exams. IMPRESSION: BI-RADS Category 1, Negative mammogram Yearly screening mammography is recommended. Breast Density - Category B, scattered fibroglandular densities. A negative radiographic report should not delay biopsy if a dominant or clinically suspicious mass is present. Up to ten percent of cancers are not identified on mammography. A negative report may reinforce clinical impression. Adenosis and dense breasts may obscure an underlying neoplasm. False positive reports average 6 to 10%. Patient will receive a letter notifying them of these results.
--- NOTE | 2023-05-04 08:15 | DI.RAD_ITS ---
Exam(s) XR CHEST 2V PA LATERAL EXAM: XR CHEST 2V PA LATERAL CLINICAL HISTORY: ? acute process,sob,r06.02 TECHNIQUE: 2D digital imaging was performed. COMPARISON: CR XR CHEST 2V PA LATERAL from 03/09/2022 FINDINGS: HEART: Normal size. Aorta: Not dilated. PULMONARY VASCULATURE: Normal. LUNGS: Clear. PLEURAL SPACE: No pleural effusion or pneumothorax. BONE:Unremarkable for age. Soft tissues: Unremarkable. IMPRESSION: No acute abnormality. DATA REPOSITORY: RADIATION DOSE DELIVERED:
== END ==
PROVIDERS: PCP Nurse Practitioner Adult Health; Visit Provider Nurse Practitioner Adult Health
DX: Z12.31 Encounter for screening mammogram for malignant neoplasm of breast (principal); R06.02 Shortness of breath
CPT/HCPCS: 77063; 77067; 71046

== ENCOUNTER → 2023-08-24 11:37 | Outpatient (BNVA) | payer MEDICARE, SELFPAY | PROVIDERS: PCP Nurse Practitioner Adult Health; Referring Provider Nurse Practitioner Adult Health; Visit Provider Physical Therapy Assistant | DX: Z12.11 Encounter for screening for malignant neoplasm of colon (principal); Z80.0 Family history of malignant neoplasm of digestive organs ==

== ENCOUNTER 2023-09-01 09:59 | Day surgery (SDC) | payer MEDICARE, SELFPAY ==
--- NOTE | 2023-08-31 22:18 | W.COLOREPORT ---
Date of service: 09/01/23 Time of Service: 11:39 Colonoscopy Report Date of procedure: 09/01/23 Pre-op diagnosis general: family hx of CRC cancer 2nd degree FM Post-op diagnosis procedure note: other (Diverticula) Procedure: Flexible sigmoid Surgeon: Jenn Dennison Anesthesia Type: General:No Airway Estimated blood loss (mL): 0 Pathology: none sent Complications: None Disposition: observation Prep: Miralax/Dulcolax Procedure Description: After informed consent was obtained the patient was taken to the procedure room and placed in a left decubitous position. Monitors were applied and a time out was done. The patients name, date of , procedure, allergies to medications and metal in their body was reviewed. The patient was then sedated. Once sedated and comfortable a rectal exam was done. External exam was normal. Internal exam revealed a normal sphincter tone and no palpable radha. The scope was then introduced and retrofelexed. The scope was then advanced to 30 cm. Once we get to 30 cm, there is a significant burden of formed stool, and we are unable to progress any further. She does have multiple large diverticula noted. The scope was removed and the patient was woken up and taken back to Same day surgery in stable condition. The patient tolerated the procedure well and there were no immediate complications. Follow up: The patient should contact our office to reschedule [place] Bowel Prep [place] Bowel Prep Right Colon: 0 Left Colon: 0 Transverse Colon: 0 Total Score: 0
--- NOTE | 2023-08-31 22:20 | PDOC.DSDIS_ITS ---
Date of service: 09/01/23 Time of Service: 11:42 Discharge Plan Disposition Patient Disposition: Home Discharge Details Reason For Visit: colon scope Attending Provider: Jenn Dennison Primary Care Provider: Sparkle Smart Home Meds and New Rx's Prescriptions: Continued vitamin B complex [B Complex-Vitamin B12] Tablet 1 tab PO DAILY Patient Comments: Low-normal vit B12 (h/o of cognitive impairment in M with low Vit B12) cholecalciferol (vitamin D3) 25 mcg (1,000 unit) capsule 5,000 unit PO DAILY Patient Comments: Vit D deficiency liquid CBD 40 mg PO DAILY acyclovir 400 mg tablet 400 mg PO BID PRN (Reason: herpes outbreak) Qty: 60 0RF albuterol sulfate [ProAir HFA] 90 mcg/actuation HFA aerosol inhaler 2 puff Inhalation Q4H PRN Qty: 1 3RF Rx Instructions: Dispense with spacer for cough, SOB, wheeze. hydroxyzine HCl 25 mg tablet 25 mg PO BID MDD 100mg/24h PRN (Reason: anxiety) Qty: 60 3RF ketoconazole 2 % shampoo 1 applic Topical DAILY PRN (Reason: adriana derm) Qty: 240 1RF Rx Instructions: DX: [facility] DISPENSE: 240 ML mometasone 50 mcg/actuation spray,non-aerosol 1 - 2 spray NS DAILY PRN (Reason: nasal congestion) Qty: 17 3RF Rx Instructions: Failed Flonase & Triamcinolone nasal (03/11/2020) Discontinued bisacodyl [Dulcolax (bisacodyl)] 5 mg tablet,delayed release (DR/EC) 5 mg PO ONCE Qty: 4 0RF Rx Instructions: Take per colonoscopy instructions provided by ordering providers office polyethylene glycol 3350 17 gram/dose powder 17 g PO ONCE Qty: 238 0RF Rx Instructions: Take per colonoscopy instructions provided by ordering providers office Discharge Instructions Additional Instructions: DSU Colonoscopy Post- Op Instructions Instructions for Everyone who is given Anesthesia: For your safety, please do the following for the next twenty-four (24) hours: *Do Not operate a motor vehicle (car, truck, motorcycle, etc.) *Do Not drink alcoholic beverages or use any recreational drugs for the first 24 hours or while taking pain medications. The medications in your body may have a reaction that can be dangerous. *Do Not make any important decisions or sign any important papers. Findings: Diverticula There was still a large quantity of formed stool and we could not complete the procedure Follow up: Please contact my office to reschedule with a 2-day prep and [employer] [phone] 1. No lifting over 20 pounds or strenuous activity for the first 24 hours after your procedure. After 24 hours there are no restrictions on your activity but you may feel fatigued for a few days. 2. After you arrive home you may have a light meal and return to your normal diet as you can tolerate it without feeling sick to your stomach. 3. You may have a bloated, gaseous feeling in your belly (abdomen) after a colonoscopy. Passing gas and belching will help. Walking or lying down on your left side with your knees flexed may relieve the discomfort. Call the office at [phone] (Office) or [phone] (Hospital) right away if you notice any of the following: a.Vomiting of blood or ?coffee ground stools?. b.Rectal bleeding 1Tbsp, blood clots or continuous bleeding. c.Severe belly (abdominal) pain. d.A hard distended belly (abdomen) and an inability to pass gas. 4. Please don?t expect to have a normal BM (bowel movement) for 2-3 days after your procedure. 5. If there are questions regarding the findings of your procedure, please contact your doctor 6. If you are unable to contact your doctor with a problem, contact the hospital at [phone]. 7. Continue all your regular medications unless directed otherwise. I understand the above instructions and have no questions. Signature of Patient or Adult Escort Name of Responsible Adult Escort Signature of Nurse Date/Time Activity:: see above Diet:: see above Discharge Orders Discharge Orders: Discharge Order (Routine); Ordered 09/01/23 Ordered By: Jenn Dennison DS: Diagnosis Discharge Diagnosis (1) Family history of thyroid disease: Status: Chronic (2) Overweight: Status: Chronic (3) Vitamin D deficiency: Status: Acute (4) Seasonal allergies: Status: Acute (5) Family history of thyroid cancer: Status: Chronic (6) Thyroid antibody positive: Status: Acute (7) Diverticula of colon: Status: Acute Asessment and Plan: The patient is seen and examined after their colonoscopy.? The patient has been able to pass gas.? They are not having abdominal pain.? They have been able to tolerate liquids and a snack.? They do not have any nausea or vomiting.? They are not having any chest pain or shortness of breath.??? They are not having any rectal bleeding. Their vital signs have been stable-see nursing notes. We discussed findings during their colonoscopy, and any biopsies that were done/polyps that were removed. The patient will be sent a letter with any biopsy results, and when to repeat the colonoscopy.-see discharge instructions. Patient was given explicit instructions to follow-up regarding colonoscopy-refer to discharge instructions.? We reviewed resumption of medications. Patient verbalized understanding and discharged in stable and satisfactory condition- See nursing notes.
[2023-09-01 10:11] VITALS: BP 144/71; PULSE 71; RESP 16; TEMP 36.7; O2SAT 99
[2023-09-01] MEDS: Lactated Ringers 1,000 ML 80 ML IV (10:29)
--- NOTE | 2023-09-01 11:11 | W.ANESPRE ---
General Info Date of Service Date Performed: 09/01/23 Height: 5 ft 3 in Weight: 79.6 kg Body Mass Index (BMI): 31.1 Surgical Procedure: Operation Date: 09/01/23 10:35 Proposed Procedure Side Surgeon p Colonoscopy Jenn Dennison DO Actual Procedure Side Surgeon p Colonoscopy Not Applicable Jenn Dennison, Pre-Op Diagnosis Post-Op Diagnosis Encounter for screening colonoscopy Meds Allergies and Home Medications Allergies Allergy/AdvReac Type Severity Reaction Status Date / Time lidocaine Allergy Severe Anaphylaxsi Verified 09/01/23 10:11 s sulfamethoxazole Allergy Severe Other (See Verified 09/01/23 10:11 [From Bactrim] Comment) trimethoprim [From Bactrim] Allergy Severe Other (See Verified 09/01/23 10:11 Comment) Sulfa (Sulfonamide Allergy Intermediate Dizziness/Lightheaded, Verified 09/01/23 10:11 Antibiotics) severe rash/chills shakes sumatriptan Allergy Intermediate THROAT Verified 09/01/23 10:11 FEELS TIGHT Anesthetics - Amide Type - Allergy Unknown Other (See Verified 09/01/23 10:11 Select A Comment) [Anesthetics - Amide Type] fluticasone propionate AdvReac Mild Irritated Verified 09/01/23 10:11 [From Flonase] throat methylprednisolone AdvReac Other (See Verified 09/01/23 10:11 Comment) anchovies Allergy Severe swollen Uncoded 09/01/23 10:11 throat Home Medication Medication Instructions Recorded vitamin B complex (B 1 tab PO DAILY 09/25/20 Complex-Vitamin B12 tablet) liquid CBD 40 mg PO DAILY 06/30/21 cholecalciferol (vitamin D3) 25 5,000 unit PO DAILY 08/10/22 mcg (1,000 unit) capsule acyclovir 400 mg tablet 400 mg PO BID PRN herpes outbreak 12/23/22 #60 tab-caps albuterol sulfate 90 mcg/actuation 2 puff inhalation Q4H PRN ##1 12/23/22 aerosol inhaler (ProAir HFA) hydroxyzine HCl 25 mg tablet 25 mg PO BID PRN anxiety #60 tabs 12/23/22 ketoconazole 2 % shampoo 1 applic topical DAILY PRN bean 12/23/22 derm #240 mL mometasone 50 mcg/actuation nasal 1 - 2 spray NS DAILY PRN nasal 12/23/22 spray congestion #17 grams Current Visit Medications: Current Medications Generic Name Dose Route Start Last Admin Trade Name Marquesq PRN Reason Stop Dose Admin Hyoscyamine Sulfate 0.125 mg 09/01/23 10:15 Hyoscyamine 0.125 Mg Sl/Oral/Chew SL 10/01/23 10:14 DIRECTED PRN Ringer's Solution 1,000 mls @ 80 mls/hr 09/01/23 06:00 09/01/23 10:29 IV 09/01/23 23:59 80 mls/hr INFUSION ROSY Administration IV Miscellaneous Supplies 1 each 09/01/23 06:00 Iv Access IV 09/01/23 23:59 DIRECTED ROSY Ondansetron HCl 4 mg 09/01/23 10:15 Ondansetron 4 Mg/2 Ml Vial IVP 10/01/23 10:14 Q4H PRN PRN Nausea / Vomiting Sodium Chloride 0 ml 09/01/23 06:00 Normal Saline Flush 10 Ml Syr IV 09/01/23 23:59 PRN PRN Sodium Chloride 0 ml 09/01/23 06:00 Normal Saline 10 Ml Vial IJ 09/01/23 23:59 DIRECTED PRN Sterile Water 0 ml 09/01/23 06:00 Water,Injection,Sterile 10 Ml Vial IJ 09/01/23 23:59 DIRECTED PRN PFSH Active Problems Active Problems: Problem Status Onset Code Thyroid antibody positive R76.8 Overweight 08/06/12 E66.3 Osteopenia 03/07/16 M85.80 Impaired fasting glucose ~03/2020 R73.01 Elevated LDL cholesterol level E78.00 Vitamin B12 deficiency E53.8 Family history of thyroid disease Z83.49 Family history of thyroid cancer Z80.8 Vitamin D deficiency E55.9 Herpes simplex 08/06/12 B00.9 Osteoarthritis of left knee M17.12 Osteoarthritis of right knee 03/20/14 M17.11 Seasonal allergies 12/06/13 J30.2 Medical History Medical History Anxiety (01/09/13) Clonazepam Chronic sinusitis (04/14/15) Depressive disorder (07/26/11) Elevated antinuclear antibody (JACKIE) level (03/07/16) GERD without esophagitis (02/03/15) Vocal changes Left breast lump (07/30/15) SARS-CoV-2 positive (09/10/21) Surgical History Surgical History section x2 1987 and 1989 Deviated septum repair, ~1980 limited chondroplasty (04/08/13) Dr Garrett medial femoral condyle and patellofemoral joint R Meniscectomy (04/08/13) Dr Garrett-arthroscopic partial R Tobacco Smoking/Tobacco Use Status: Former Tobacco Use Passive smoking exposure: No Alcohol Alcohol Intake: never Substance Use Substance use: Never Substance use type: does not use Vital Signs and Lab Results Vital Signs Most Recent Vital Signs in EMR: Most Recent Vital Signs Temp Pulse Resp BP Pulse Ox 36.7 C 71 16 144/71 H 99 09/01/23 10:11 09/01/23 10:11 09/01/23 10:11 09/01/23 10:11 09/01/23 10:11 Lab Results Blood Type / Crossmatch: No Data to Display Complete Blood Count: No Data to Display Complete Metabolic Panel: No Data to Display Liver Function Panel: No Data to Display Coagulation Panel: No Data to Display Cardiac Panel: No Data to Display Arterial Blood Gas: No Data to Display Venous Blood Gas: No Data to Display Pancreas Panel: No Data to Display Thyroid Panel: No Data to Display Infectious Disease: No Data to Display Blood Cultures: No Data to Display Toxicology Panel: No Data to Display Imaging and Studies Imaging and Studies Study information below may be from another EMR and interpreted by another provider. Please see original notes in EMR for more complete details. EKG Summary: 02/18/2022: Exam: Resting ECG Reason for Exam: pre-op Patient Location: O HR:73 bpm ECG Measurements Heart Rate 73 AXIS SC 185 P 42 QRSd 85 QRS 14 QT 388 T32 QTc 428 Conclusion Sinus rhythm...normal P axis, V-rate 50- 99 Normal Electrocardiogram Anesthesia Assessment and Plan Anesthesia History Personal History: No History of Anesthesia Complications Family History: No Family History of Anesthesia Complications Exercise Tolerance Exercise Tolerance: Metabolic Equivalents>4 Pertinent Negatives Pertinent Negatives: No Major Cardiovascular Symptoms or Complaints and No Major Pulmonary Symptoms or Complaints Cardiac & Pulmonary Exam Cardiac Exam: Normal S1/S2 Heart Sounds Pulmonary Exam: Clear Bilateral Breath Sounds Implantable Cardiac Device Does patient have a Pacemaker or an ICD?: No Airway Exam Known Difficult Airway: No Mallampati Class: 2 Mouth Opening: Normal (> 3cm) Thyromental Distance: Greater than 3 cm Neck Range of Motion: Full ROM Neck Circumference: Normal Teeth Condition: Generalized Poor Dentition ASA Classification ASA Score: ASA 2 Emergency Case?: No NPO Status NPO Status: NPO Clears >2 hours, Solids >8 hours Anesthesia Plan Resuscitation Status: Full Code Anesthesia Technique: MAC Anesthesia Airway Planned: Natural Airway Monitors Used: Standard Monitors Preoperative Comments:: Elects to start with MAC and proceed to GA/natural airway if necessary per patient request. Dr. Dennison aware.
[2023-09-01 11:13] VITALS: BMI 31.1
[2023-09-01 11:36] VITALS: BP 135/71; PULSE 65; RESP 16; TEMP 36.5; O2SAT 99
[2023-09-01 12:06] VITALS: BP 127/73; PULSE 56; RESP 16; TEMP 36.4; O2SAT 100
--- NOTE | 2023-09-01 12:22 | W.ANESPOSTOP ---
Postoperative Evaluation Date, Time and Location Date Performed: 09/01/23 Time Performed: 11:40 Patient Location: Day Surgery Unit Vital Signs Most Recent Imported Vital Signs: Most Recent Vital Signs Temp Pulse Resp BP Pulse Ox 36.5 C 65 16 135/71 99 09/01/23 11:36 09/01/23 11:36 09/01/23 11:36 09/01/23 11:36 09/01/23 11:36 Pain Score Most Recent Pain Score: Most Recent Pain Score Pain Level 0 09/01/23 11:36 Assessment Mental Status: Awake (Alert & Oriented to Patient Baseline) Airway and Respiratory Function: Patent airway with normal (patient baseline) respiratory exam Cardiovascular Function: Hemodynamically Stable Hydration Status: Adequately Hydrated Nausea & Vomiting: No Nausea or Vomiting Pain: Pt. Denies Any Pain Peripheral Nerve Block: Patient did not receive a nerve block
== END 2023-09-01 12:20 | disposition home or self-care (01) ==
PROVIDERS: PCP Nurse Practitioner Adult Health; Visit Provider Surgery
PROC: 0DJD8ZZ Inspection of Lower Intestinal Tract, Via Natural or Artificial Opening Endoscopic (ICD-10-PCS; CPT 45378; principal; 2023-09-01 10:30)
DX: Z12.11 Encounter for screening for malignant neoplasm of colon (principal); K57.30 Diverticulosis of large intestine without perforation or abscess without bleeding; Z80.0 Family history of malignant neoplasm of digestive organs
CPT/HCPCS: G0105; J2001; J2704

== ENCOUNTER 2023-10-31 08:13 | Day surgery (SDC) | payer MEDICARE, SELFPAY ==
--- NOTE | 2023-10-30 21:15 | W.PM.HP.N ---
Date of service: 10/31/23 Time of Service: 09:31 Assessment and Plan Assessment and plan (1) Elevated LDL cholesterol level: Status: Chronic (2) Impaired fasting glucose: Status: Chronic (3) Family history of thyroid disease: Status: Chronic (4) Overweight: Status: Chronic (5) Diverticula of colon: Status: Acute Assessment and plan: Plan: Colonoscopy w/ general & natural airway. Informed consent is obtained for the procedural (explained in simple layman's terms that?the pt and/or family could understand) explaining risks vs benefits and alternatives to the procedure and consequences if we do not do the procedure and need/rational for the procedure. Risks include but are not limited to: bleeding, infection, perforation of colon.? This would necessitate emergency surgery to repair the damage w/ possible ostomy; and other associated complications w/ the required surgery. ? Also complications of anesthesia including aspiration, NV/CVA/, inability to complete the procedure. I discussed with the?patient would they could expect during the procedure, post procedure and recovery time and risks.? The patient understands that they need to have a ride home after the procedure.? (6) Osteopenia: Status: Chronic Qualifiers: Osteopenia location: unspecified Qualified Code(s): M85.80 - Other specified disorders of bone density and structure, unspecified site History of Present Illness Narrative: pt is here today for a screening CE. last attempt at CE was incomplete due to poot prep. Patient is here today for colonoscopy for CRC screening.??? They completed a bowel prep with just a clear yellow residual effluent.? They not having any chest pain or shortness of breath, currently.? They are not experiencing any fever or chills.? They deny any productive cough or upper respiratory tract infection signs or symptoms.? They are not having abdominal pain, or nausea and vomiting.? They have not had any changes in medications, past medical history or past surgical history since previously being seen in the office. They have not had any accidents or have been in the ER since the clinic pre-operative evaluation. ??I reviewed the procedure with the patient today, including risks and benefits of the procedure, and what they could expect at home for recovery.? All questions are answered to the patient?s satisfaction today, and they are stable to proceed with the proposed procedure. No change in bowel habits/bleeding wt loss. NO changes in meds or PHMx or PSHx hx from preop for prior ce: 67 y/o female with history of over weight and herpes simplex presents for colonoscopy screening pre-op. Her last screening was in 2008, which was unremarkable. She reports a family history of colon cancer in her paternal grandmother. She denies any changes in bowel habits including bloody or black tarry stools, abdominal pain, diarrhea or constipation. She denies constitutional symptoms. She denies chest pain, palpitations, dyspnea or dyspnea with exertion. She denies prior history or family history of adverse reactions or complications with anesthesia. The patient denies any history of stroke, NV, seizures, bleeding or clotting disorders. She denies having any implanted metal in her body. Review of Systems All systems reviewed & are unremarkable except as noted in HPI and below PFSH All Active Problems Diverticula of colon (Acute) Thyroid antibody positive (Acute) Overweight (Chronic 08/06/12) Osteopenia (Chronic 03/07/16) Progressing 2020 DEXA Impaired fasting glucose (Chronic ~03/2020) 109 on 03/2020 Elevated LDL cholesterol level (Chronic) 2019 & 2021; ASCVD score 5%-->not a candidate for statin Family history of thyroid disease (Chronic) M-F-D (cancer) Family history of thyroid cancer (Chronic) D Vitamin D deficiency (Acute) 03/2020=19 Herpes simplex (Chronic 08/06/12) Genital; Acyclovir RX Osteoarthritis of left knee (Acute) [facility] report dated 11/24/16 Osteoarthritis of right knee (Acute 03/20/14) [facility] Ortho referral 2014 X-rays Seasonal allergies (Acute 12/06/13) RX Flonase Also allergic to environement (dust) Medical History SARS-CoV-2 positive (09/10/21) Anxiety (01/09/13) Clonazepam Chronic sinusitis (04/14/15) Depressive disorder (07/26/11) Elevated antinuclear antibody (JCAKIE) level (03/07/16) GERD without esophagitis (02/03/15) Vocal changes Left breast lump (07/30/15) Surgical History limited chondroplasty (04/08/13) Dr Garrett medial femoral condyle and patellofemoral joint R Meniscectomy (04/08/13) Dr Garrett-arthroscopic partial R Deviated septum repair, ~1979 section x2 1987 and 1989 Family History Mother , Heart arrhythmia at age 69. Mental disorder Depression Father Hypertensive disorder, systemic arterial Hypothyroidism Paternal Grandmother Personal history of malignant neoplasm Colon cancer Maternal Grandmother Kidney disease Daughter Thyroid cancer Brain cancer Social History Smoking/Tobacco Use Status: Former Tobacco Use Quit Date: 05/08/87 Smoking risk assessment performed?: Yes Alcohol Intake: never Drug use: Never Substance use type: does not use Adopted: No Caregiver/Support person: Yes Foster care: No Household members: children and other Details: Grandson Housing: apartment Number of Children: 2 number of grandchildren: 2 Communication Needs: Corrective Lenses Education Level: college Details: BS degree Do you need help understanding health information?: Never current occupation: Works for [email or web address] ([employer]) Pets and animals: No Sexually active: Yes Do you think of yourself as: straight/heterosexual Current gender identity: female What is your relationship status?: How often do you talk on the phone with friends or family?: three or more times per week How often do you get together with friends or relatives?: once per week How often do you attend jehovah's witness or yazidi services?: decline to answer Do you belong to any clubs or organized social groups?: no Panel score (0-1 are the most socially isolated patients): 1 What type of physical activity do you participate in: none and walking Duration: 15-30 minutes/day Frequency: 5-6 times per week Leatha/Latter-Day: Christianity Special leatha needs: No Seatbelt use: always Helmet use: Yes Drive intox or ride w/intox driver lifter of sanitation truck: No Working smoke detector in home: Yes Fire extinguisher in home: Yes Carbon monox detector in home: Yes Do you feel safe at home: Yes Do you feel safe in your relationship?: Yes Meds Allergies and Home Medications Allergies Allergy/AdvReac Type Severity Reaction Status Date / Time lidocaine Allergy Severe Anaphylaxsi Verified 10/31/23 08:31 s sulfamethoxazole Allergy Severe Other (See Verified 10/31/23 08:31 [From Bactrim] Comment) trimethoprim [From Bactrim] Allergy Severe Other (See Verified 10/31/23 08:31 Comment) Sulfa (Sulfonamide Allergy Intermediate Dizziness/Lightheaded, Verified 10/31/23 08:31 Antibiotics) severe rash/chills shakes sumatriptan Allergy Intermediate THROAT Verified 10/31/23 08:31 FEELS TIGHT Anesthetics - Amide Type - Allergy Unknown Other (See Verified 10/31/23 08:31 Select A Comment) [Anesthetics - Amide Type] fluticasone propionate AdvReac Mild Irritated Verified 10/31/23 08:31 [From Flonase] throat methylprednisolone AdvReac Other (See Verified 10/31/23 08:31 Comment) anchovies Allergy Severe swollen Uncoded 10/31/23 08:31 throat Home Medications Medication Instructions Recorded Confirmed Type vitamin B complex (B 1 tab PO DAILY 09/25/20 10/31/23 History Complex-Vitamin B12 tablet) liquid CBD 40 mg PO DAILY 06/30/21 10/31/23 History cholecalciferol (vitamin D3) 25 5,000 unit PO DAILY 08/10/22 10/31/23 History mcg (1,000 unit) capsule acyclovir 400 mg tablet 400 mg PO BID PRN herpes outbreak 12/23/22 10/31/23 Rx #60 tab-caps albuterol sulfate 90 mcg/actuation 2 puff inhalation Q4H PRN ##1 12/23/22 10/31/23 Rx aerosol inhaler (ProAir HFA) hydroxyzine HCl 25 mg tablet 25 mg PO BID PRN anxiety #60 tabs 12/23/22 10/31/23 Rx ketoconazole 2 % shampoo 1 applic topical DAILY PRN bean 12/23/22 10/31/23 Rx derm #240 mL mometasone 50 mcg/actuation nasal 1 - 2 spray NS DAILY PRN nasal 12/23/22 10/31/23 Rx spray congestion #17 grams prochlorperazine maleate 5 mg 5 mg PO QID PRN nausea and 09/07/23 10/31/23 Rx tablet (Compazine) vomiting #7 tabs Exam Narrative Exam Narrative: PHYSICAL EXAM GENERAL APPEARANCE: Alert, healthy appearance, oriented, x 3,? in no acute distress HYDRATION: Well hydrated HEAD, EYES, EARS, NECK, THROAT: Head is normocephalic, pupils equal, round, reactive to light and accommodation, ocular movement intact, sclera clear and no jaundice. ?Dentition intact. LUNGS: normal respiration/normal chest excursion. ?Clear to auscultation bilaterally. ?No wheeze. ?HEART: Regular rate and rhythm. no murmurs ABDOMEN: soft and non-tender to palpation.? Normal bowel sounds.? Anemia profile Hgb 13.1 g/dL (11.2-15.7) 03/11/20 Hct 39.7 % (36.0-46.0) 03/11/20 MCV 88.8 fL (80-95) 03/11/20 RDW 12.2 % (11.7-14.6) 03/11/20 Iron 105 ug/dL (50-175) 04/20/17 Ferritin 216 ng/mL (8-388) 04/20/17 TIBC 281 ug/dL (250-450) 04/20/17 Transferrin % Sat 37 % (15-50) 04/20/17 Vitamin B12 376 pg/mL (193-986) 09/16/22 Folate 17.5 ng/mL (8.6-20.0) 09/16/22 Basic Metabolic Sodium 141 mmol/L (136-145) 09/16/22 Potassium 4.2 mmol/L (3.5-5.1) 09/16/22 Chloride 107 mmol/L (98-107) 09/16/22 Carbon Dioxide 26.5 mmol/L (21.0-32.0) 09/16/22 BUN 17 mg/dL (7-18) 09/16/22 Creatinine 0.8 mg/dL (0.55-1.02) 09/16/22 Estimated GFR/1.73 m2 >= 60.00 (mL/min/1.73m2) 06/23/21 Glucose 109 mg/dL (74-106) H 09/16/22 CBC White Blood Count 5.62 10^3/uL (4.4-10.8) 03/11/20 Red Blood Count 4.47 10^6/uL (3.93-5.22) 03/11/20 Hemoglobin 13.1 g/dL (11.2-15.7) 03/11/20 Hematocrit 39.7 % (36.0-46.0) 03/11/20 Mean Corpuscular Volume 88.8 fL (80-95) 03/11/20 Mean Corpuscular Hemoglobin 29.3 pg (27.0-33.0) 03/11/20 Mean Corpuscular Hemoglobin Concent 33.0 % (32.0-36.0) 03/11/20 Red Cell Distribution Width 12.2 % (11.7-14.6) 03/11/20 Platelet Count 242 10^3/uL (130-400) 03/11/20 Mean Platelet Volume 10.3 fL (8.0-11.0) 03/11/20 Neutrophils % 62.7 08/03/16 Lymphocytes % 23.9 08/03/16 Monocytes % 8.5 08/03/16 Eosinophils % 3.7 08/03/16 Basophils % 1.0 08/03/16 Immature Granulocytes % 0.2 08/03/16 Comprehensive Metabolic Panel Sodium 141 mmol/L (136-145) 09/16/22 07:11 Potassium 4.2 mmol/L (3.5-5.1) 09/16/22 07:11 Chloride 107 mmol/L (98-107) 09/16/22 07:11 Carbon Dioxide 26.5 mmol/L (21.0-32.0) 09/16/22 07:11 BUN 17 mg/dL (7-18) 09/16/22 07:11 Creatinine 0.8 mg/dL (0.55-1.02) 09/16/22 07:11 Estimated GFR/1.73 m2 >= 60.00 (mL/min/1.73m2) 06/23/21 07:21 Glucose 109 mg/dL (74-106) H 09/16/22 07:11 Calcium 9.1 mg/dL (8.5-10.1) 09/16/22 07:11 Total Bilirubin 0.4 mg/dL (0.2-1.0) 09/16/22 07:11 ALT 27 U/L (14-59) 09/16/22 07:11 AST 18 U/L (15-37) 09/16/22 07:11 Alkaline Phosphatase 90 U/L (46-116) 09/16/22 07:11 Total Protein 7.1 g/dL (6.4-8.2) 09/16/22 07:11 Albumin 3.7 g/dL (3.4-5.0) 09/16/22 07:11 Diabetes results Hemoglobin A1c 6.0 % (<5.7) H 09/16/22 Glucose 109 mg/dL (74-106) H 09/16/22 Total Cholesterol 231 mg/dL (<200) H 09/16/22 LDL Cholesterol, Calc 164 mg/dL (<100) H 09/16/22 LDL Cholesterol Direct 131 mg/dL (<100) H 08/03/16 HDL Cholesterol 49 mg/dL (40-60) 09/16/22 Triglycerides 93 mg/dL (<150) 09/16/22 BUN 17 mg/dL (7-18) 09/16/22 Creatinine 0.8 mg/dL (0.55-1.02) 09/16/22 Estimated GFR/1.73 m2 >= 60.00 (mL/min/1.73m2) 06/23/21 Est GFR (CKD-EPI 2020) 82.23 (mL/min/1.73m2) 09/16/22 Sodium 141 mmol/L (136-145) 09/16/22 Potassium 4.2 mmol/L (3.5-5.1) 09/16/22 Chloride 107 mmol/L (98-107) 09/16/22 Carbon Dioxide 26.5 mmol/L (21.0-32.0) 09/16/22 Calcium 9.1 mg/dL (8.5-10.1) 09/16/22 AST 18 U/L (15-37) 09/16/22 ALT 27 U/L (14-59) 09/16/22 Total Protein 7.1 g/dL (6.4-8.2) 09/16/22 Albumin 3.7 g/dL (3.4-5.0) 09/16/22 TSH 4.83 uIU/mL (0.36-3.74) H 09/16/22 Vitamin B12 376 pg/mL (193-986) 09/16/22 Lipid profile Total Cholesterol 231 mg/dL (<200) H 09/16/22 HDL Cholesterol 49 mg/dL (40-60) 09/16/22 LDL Cholesterol, Calc 164 mg/dL (<100) H 09/16/22 LDL Cholesterol Direct 131 mg/dL (<100) H 08/03/16 Triglycerides 93 mg/dL (<150) 09/16/22 Time Spent Time spent with Patient: <40 minutes Time was spent: preparing to see the patient(eg.review tests), obtaining and/or reviewing separately otained hiistory, referring, communicating with other health skin care therapist, indepentently interpreting results and counseling the patient
--- NOTE | 2023-10-30 21:22 | PDOC.DSDIS_ITS ---
Date of service: 10/31/23 Time of Service: 10:33 Discharge Plan Disposition Patient Disposition: Home Condition: Good Discharge Details Reason For Visit: colon cancer screening Attending Provider: Jenn Dennison Primary Care Provider: Sparkle Smart Home Meds and New Rx's Prescriptions: Continued vitamin B complex [B Complex-Vitamin B12] Tablet 1 tab PO DAILY Patient Comments: Low-normal vit B12 (h/o of cognitive impairment in M with low Vit B12) cholecalciferol (vitamin D3) 25 mcg (1,000 unit) capsule 5,000 unit PO DAILY Patient Comments: Vit D deficiency liquid CBD 40 mg PO DAILY acyclovir 400 mg tablet 400 mg PO BID PRN (Reason: herpes outbreak) Qty: 60 0RF albuterol sulfate [ProAir HFA] 90 mcg/actuation HFA aerosol inhaler 2 puff Inhalation Q4H PRN Qty: 1 3RF Rx Instructions: Dispense with spacer for cough, SOB, wheeze. hydroxyzine HCl 25 mg tablet 25 mg PO BID MDD 100mg/24h PRN (Reason: anxiety) Qty: 60 3RF ketoconazole 2 % shampoo 1 applic Topical DAILY PRN (Reason: bean derm) Qty: 240 1RF Rx Instructions: DX: BEAN DERM DISPENSE: 240 ML mometasone 50 mcg/actuation spray,non-aerosol 1 - 2 spray NS DAILY PRN (Reason: nasal congestion) Qty: 17 3RF Rx Instructions: Failed Flonase & Triamcinolone nasal (03/11/2020) prochlorperazine maleate [Compazine] 5 mg tablet 5 mg PO QID PRN (Reason: nausea and vomiting) Qty: 7 0RF Discontinued bisacodyl [Dulcolax (bisacodyl)] 5 mg tablet,delayed release (DR/EC) 5 mg PO ONCE Qty: 8 0RF Rx Instructions: take per colonoscopy instructions peg 3350-electrolytes [Golytely] 236-22.74-6.74 -5.86 gram recon soln 240 ml PO Q10M Qty: 240 0RF Rx Instructions: until fecal effluent is clear Discharge Instructions Additional Instructions: DSU Colonoscopy Post- Op Instructions Instructions for Everyone who is given Anesthesia: For your safety, please do the following for the next twenty-four (24) hours: *Do Not operate a motor vehicle (car, truck, motorcycle, etc.) *Do Not drink alcoholic beverages or use any recreational drugs for the first 24 hours or while taking pain medications. The medications in your body may have a reaction that can be dangerous. *Do Not make any important decisions or sign any important papers. Findings: -1 polyp. My office will send you a letter in 3 to 4 weeks time with the results and when we want you to repeat the colonoscopy -Diverticula: Make sure you are moving your bowels on a regular basis and not straining to go to the bathroom. If you find you are having problems with straining/constipation, then it is recommended you start a fiber such supplement such as Metamucil or psyllium husk's. 1. No lifting over 20 pounds or strenuous activity for the first 24 hours after your procedure. After 24 hours there are no restrictions on your activity but you may feel fatigued for a few days. 2. After you arrive home you may have a light meal and return to your normal diet as you can tolerate it without feeling sick to your stomach. 3. You may have a bloated, gaseous feeling in your belly (abdomen) after a colonoscopy. Passing gas and belching will help. Walking or lying down on your left side with your knees flexed may relieve the discomfort. Call the office at [phone] (Office) or [phone] (Hospital) right away if you notice any of the following: a.Vomiting of blood or ?coffee ground stools?. b.Rectal bleeding 1Tbsp, blood clots or continuous bleeding. c.Severe belly (abdominal) pain. d.A hard distended belly (abdomen) and an inability to pass gas. 4. Please don?t expect to have a normal BM (bowel movement) for 2-3 days after y our procedure. 5. If there are questions regarding the findings of your procedure, please contact your doctor 6. If you are unable to contact your doctor with a problem, contact the hospital at [phone]. 7. Continue all your regular medications unless directed otherwise. I understand the above instructions and have no questions. Signature of Patient or Adult Escort Name of Responsible Adult Escort Signature of Nurse Date/Time Stand Alone Forms: Anesthesia Discharge Inst., Jaime Matthew (DSU) Activity:: see above Diet:: see above Discharge Orders Discharge Orders: Discharge Order (Routine); Ordered 10/31/23 Ordered By: Jenn Dennison DS: Diagnosis Discharge Diagnosis (1) Elevated LDL cholesterol level: Status: Chronic (2) Impaired fasting glucose: Status: Chronic (3) Family history of thyroid disease: Status: Chronic (4) Overweight: Status: Chronic (5) Diverticula of colon: Status: Acute Asessment and Plan: The patient is seen and examined after their colonoscopy.? The patient has been able to pass gas.? They are not having abdominal pain.? They have been able to tolerate liquids and a snack.? They do not have any nausea or vomiting.? They are not having any chest pain or shortness of breath.??? They are not having any rectal bleeding. Their vital signs have been stable-see nursing notes. We discussed findings during their colonoscopy, and any biopsies that were done/polyps that were removed. The patient will be sent a letter with any biopsy results, and when to repeat the colonoscopy.-see discharge instructions. Patient was given explicit instructions to follow-up regarding colonoscopy-refer to discharge instructions.? We reviewed resumption of medications. Patient verbalized understanding and discharged in stable and satisfactory condition- See nursing notes. (6) Osteopenia: Status: Chronic (7) Pancolonic diverticulosis: Status: Acute
--- NOTE | 2023-10-30 21:23 | COLE_ITS ---
Date of service: 10/31/23 Time of Service: 10:38 Colonoscopy Report Date of procedure: 10/31/23 Pre-op diagnosis general: CRC screening/hx of diverticula Post-op diagnosis procedure note: other (Davis diverticula/rectal polyp) Surgeon: Jenn Dennison Anesthesia Type: General:No Airway Estimated blood loss (mL): 2 Pathology: other Complications: None Disposition: same day Prep: Miralax/Dulcolax Retraction Time: 16 Procedure Description: After informed consent was obtained the patient was taken to the procedure room and placed in a left decubitous position. Monitors were applied and a time out was done. The patients name, date of , procedure, allergies to medications and metal in their body was reviewed. The patient was then sedated. Once sedated and comfortable a rectal exam was done. External exam was normal. Internal exam revealed a normal sphincter tone and no palpable masses. The scope was then introduced and retrofelexed. No internal hemorrhoids were identified. The scope was then advanced to the cecum without difficulty. The TI and appendiceal orifice were identified. The scope was then slowly retracted over 16 minutes back into the rectum. She does have large and numerous diverticula that do extend all the way over to the cecum. There is no signs of active bleeding or infection. She has a flat 5 mm polyp in the rectum that is removed with a hot biting forcep. All specimen is retrieved and no bleeding is noted. The scope was removed and the patient was woken up and taken back to Same day surgery in stable condition. The patient tolerated the procedure well and there were no immediate complications. Follow up: The patient should follow up in 5-10, path pending, years unless they develop changes in bowel habits or other new gastrointestinal complaints. [place] Bowel Prep [place] Bowel Prep Right Colon: 3 Left Colon: 2 Transverse Colon: 3 Total Score: 8
--- NOTE | 2023-10-31 01:01 | BOWEL_PTH ---
PATIENT: Opal Hermosillo LOC: [facility] U#:[id number] AGE/SX: 67/F ROOM: RE10/31/[address]: Jenn Dennison : 1955 BED: DIS: 10/31/2023 SPEC #: [id number] RECD: 10/31/23 12:52 STATUS: HAYES REQ #: [id number] ZUNILDA: 10/31/23 01:[address]: Jenn Dennison DEPT: Surgical Specimen RECD BY: Gauri Gordon ENTERED: 10/31/23 12:53 SP TYPE: Bowel OTHR DR: Sparkle Smart, JEANETTE Tissues: 1 - BIOPSY BOWEL Procedures: GROSS AND MICRO LEVEL 4 Comments: [id number]
[2023-10-31 08:33] VITALS: BP 111/68; PULSE 78; RESP 16; TEMP 36.4; O2SAT 97
[2023-10-31] MEDS: Lactated Ringers 1,000 ML 80 ML IV (08:37)
--- NOTE | 2023-10-31 08:54 | W.ANESPRE ---
General Info Date of Service Date Performed: 10/31/23 Height: 5 ft 3 in Weight: 79.6 kg Body Mass Index (BMI): 31.1 Surgical Procedure: Operation Date: 10/31/23 09:05 Proposed Procedure Side Surgeon darío Dennison, DO Meds Allergies and Home Medications Allergies Allergy/AdvReac Type Severity Reaction Status Date / Time lidocaine Allergy Severe Anaphylaxsi Verified 10/31/23 08:31 s sulfamethoxazole Allergy Severe Other (See Verified 10/31/23 08:31 [From Bactrim] Comment) trimethoprim [From Bactrim] Allergy Severe Other (See Verified 10/31/23 08:31 Comment) Sulfa (Sulfonamide Allergy Intermediate Dizziness/Lightheaded, Verified 10/31/23 08:31 Antibiotics) severe rash/chills shakes sumatriptan Allergy Intermediate THROAT Verified 10/31/23 08:31 FEELS TIGHT Anesthetics - Amide Type - Allergy Unknown Other (See Verified 10/31/23 08:31 Select A Comment) [Anesthetics - Amide Type] fluticasone propionate AdvReac Mild Irritated Verified 10/31/23 08:31 [From Flonase] throat methylprednisolone AdvReac Other (See Verified 10/31/23 08:31 Comment) anchovies Allergy Severe swollen Uncoded 10/31/23 08:31 throat Home Medication Medication Instructions Recorded vitamin B complex (B 1 tab PO DAILY 09/25/20 Complex-Vitamin B12 tablet) liquid CBD 40 mg PO DAILY 06/30/21 cholecalciferol (vitamin D3) 25 5,000 unit PO DAILY 08/10/22 mcg (1,000 unit) capsule acyclovir 400 mg tablet 400 mg PO BID PRN herpes outbreak 12/23/22 #60 tab-caps albuterol sulfate 90 mcg/actuation 2 puff inhalation Q4H PRN ##1 12/23/22 aerosol inhaler (ProAir HFA) hydroxyzine HCl 25 mg tablet 25 mg PO BID PRN anxiety #60 tabs 12/23/22 ketoconazole 2 % shampoo 1 applic topical DAILY PRN bean 12/23/22 derm #240 mL mometasone 50 mcg/actuation nasal 1 - 2 spray NS DAILY PRN nasal 12/23/22 spray congestion #17 grams prochlorperazine maleate 5 mg 5 mg PO QID PRN nausea and 09/07/23 tablet (Compazine) vomiting #7 tabs Current Visit Medications: Current Medications Generic Name Dose Route Start Last Admin Trade Name Jesika PRN Reason Stop Dose Admin Hyoscyamine Sulfate 0.125 mg 10/31/23 09:20 Hyoscyamine 0.125 Mg Sl/Oral/Chew SL 11/30/23 09:19 DIRECTED PRN Ringer's Solution 1,000 mls @ 80 mls/hr 10/31/23 06:00 10/31/23 08:37 IV 10/31/23 23:59 80 mls/hr INFUSION ROSY Administration IV Miscellaneous Supplies 1 each 10/31/23 06:00 Iv Access IV 10/31/23 23:59 DIRECTED ROSY Ondansetron HCl 4 mg 10/31/23 09:20 Ondansetron 4 Mg/2 Ml Vial IVP 11/30/23 09:19 Q4H PRN PRN Nausea / Vomiting Sodium Chloride 0 ml 10/31/23 06:00 Normal Saline Flush 10 Ml Syr IV 10/31/23 23:59 PRN PRN Sodium Chloride 0 ml 10/31/23 06:00 Normal Saline 10 Ml Vial IJ 10/31/23 23:59 DIRECTED PRN Sterile Water 0 ml 10/31/23 06:00 Water,Injection,Sterile 10 Ml Vial IJ 10/31/23 23:59 DIRECTED PRN PFSH Active Problems Active Problems: Problem Status Onset Code Diverticula of colon K57.30 Thyroid antibody positive R76.8 Overweight 08/06/12 E66.3 Osteopenia 03/07/16 M85.80 Impaired fasting glucose ~03/2020 R73.01 Elevated LDL cholesterol level E78.00 Vitamin B12 deficiency E53.8 Family history of thyroid disease Z83.49 Family history of thyroid cancer Z80.8 Vitamin D deficiency E55.9 Herpes simplex 08/06/12 B00.9 Osteoarthritis of left knee M17.12 Osteoarthritis of right knee 03/20/14 M17.11 Seasonal allergies 12/06/13 J30.2 Medical History Medical History SARS-CoV-2 positive (09/10/21) Anxiety (01/09/13) Clonazepam Chronic sinusitis (04/14/15) Depressive disorder (07/26/11) Elevated antinuclear antibody (JACKIE) level (03/07/16) GERD without esophagitis (02/03/15) Vocal changes Left breast lump (07/30/15) Surgical History Surgical History limited chondroplasty (04/08/13) Dr Garrett medial femoral condyle and patellofemoral joint R Meniscectomy (04/08/13) Dr Garrett-arthroscopic partial R Deviated septum repair, ~1979 section x2 1987 and 1989 Tobacco Smoking/Tobacco Use Status: Former Tobacco Use Passive smoking exposure: No Alcohol Alcohol Intake: never Substance Use Substance use: Never Substance use type: does not use Vital Signs and Lab Results Vital Signs Most Recent Vital Signs in EMR: Most Recent Vital Signs Temp Pulse Resp BP Pulse Ox 36.4 C L 78 16 111/68 97 10/31/23 08:33 10/31/23 08:33 10/31/23 08:33 10/31/23 08:33 10/31/23 08:33 Lab Results Blood Type / Crossmatch: No Data to Display Complete Blood Count: No Data to Display Complete Metabolic Panel: No Data to Display Liver Function Panel: No Data to Display Coagulation Panel: No Data to Display Cardiac Panel: No Data to Display Arterial Blood Gas: No Data to Display Venous Blood Gas: No Data to Display Pancreas Panel: No Data to Display Thyroid Panel: No Data to Display Infectious Disease: No Data to Display Blood Cultures: No Data to Display Toxicology Panel: No Data to Display Imaging and Studies Imaging and Studies Study information below may be from another EMR and interpreted by another provider. Please see original notes in EMR for more complete details. EKG Summary: 02/18/2022: Exam: Resting ECG Reason for Exam: pre-op Patient Location: O HR:73 bpm ECG Measurements Heart Rate 73 AXIS SC 185 P 42 QRSd 85 QRS 14 QT 388 T32 QTc 428 Conclusion Sinus rhythm...normal P axis, V-rate 50- 99 Normal Electrocardiogram Anesthesia Assessment and Plan Anesthesia History Personal History: No History of Anesthesia Complications Family History: No Family History of Anesthesia Complications Exercise Tolerance Exercise Tolerance: Metabolic Equivalents>4 Pertinent Negatives Pertinent Negatives: No Major Cardiovascular Symptoms or Complaints and No Major Pulmonary Symptoms or Complaints Cardiac & Pulmonary Exam Cardiac Exam: Normal S1/S2 Heart Sounds Pulmonary Exam: Clear Bilateral Breath Sounds Implantable Cardiac Device Does patient have a Pacemaker or an ICD?: No Airway Exam Known Difficult Airway: No Mallampati Class: 2 Mouth Opening: Normal (> 3cm) Thyromental Distance: Greater than 3 cm Neck Range of Motion: Full ROM Neck Circumference: Normal Teeth Condition: Generalized Poor Dentition ASA Classification ASA Score: ASA 2 Emergency Case?: No NPO Status NPO Status: NPO Clears >2 hours, Solids >8 hours Anesthesia Plan Resuscitation Status: Full Code Anesthesia Technique: MAC Anesthesia Airway Planned: Natural Airway Monitors Used: Standard Monitors Preoperative Comments:: Discussed plan with patient and does want to start with MAC and proceed to GA/natural airway if necessary. Dr. Dennison and team aware.
[2023-10-31 09:35] VITALS: BMI 31.1
[2023-10-31 10:11] VITALS: BP 114/69; PULSE 60; RESP 16; TEMP 36.9; O2SAT 99
[2023-10-31 10:40] VITALS: BP 128/77; PULSE 61; RESP 16; TEMP 36.2; O2SAT 97
--- NOTE | 2023-10-31 10:54 | W.ANESPOSTOP ---
Postoperative Evaluation Date, Time and Location Date Performed: 10/31/23 Time Performed: 10:36 Patient Location: Day Surgery Unit Vital Signs Most Recent Imported Vital Signs: Most Recent Vital Signs Temp Pulse Resp BP Pulse Ox 36.2 C L 61 16 128/77 97 10/31/23 10:40 10/31/23 10:40 10/31/23 10:40 10/31/23 10:40 10/31/23 10:40 Pain Score Most Recent Pain Score: Most Recent Pain Score Pain Level 0 10/31/23 10:40 Assessment Mental Status: Awake (Alert & Oriented to Patient Baseline) Airway and Respiratory Function: Patent airway with normal (patient baseline) respiratory exam Cardiovascular Function: Hemodynamically Stable Hydration Status: Adequately Hydrated Nausea & Vomiting: No Nausea or Vomiting Pain: Pt. Denies Any Pain Peripheral Nerve Block: Patient did not receive a nerve block
== END 2023-10-31 10:55 | disposition home or self-care (01) ==
LOC: SUR 08:13
PROVIDERS: PCP Nurse Practitioner Adult Health; Visit Provider Surgery
PROC: 0DJD8ZZ Inspection of Lower Intestinal Tract, Via Natural or Artificial Opening Endoscopic (ICD-10-PCS; CPT 45378; principal; 2023-10-31 09:00)
DX: Z12.11 Encounter for screening for malignant neoplasm of colon (principal); K57.30 Diverticulosis of large intestine without perforation or abscess without bleeding; K62.1 Rectal polyp; Z80.0 Family history of malignant neoplasm of digestive organs
CPT/HCPCS: 45385; 88305; J2704

== ENCOUNTER → 2023-12-01 00:35 | Outpatient (CLI) | payer MEDICARE, SELFPAY ==
--- NOTE | 2023-12-01 07:00 | DI.US_ITS ---
Exam(s) US THYROID EXAM: US THYROID CLINICAL HISTORY: family h/o thyroid ca,abnl lifeline screening,z80.8. TECHNIQUE: Ultrasound thyroid performed using standard protocol. COMPARISON: No exams were available for comparison FINDINGS: ISTHMUS: 3.7 mm RIGHT LOBE: Size: 4.2 x 2.1 x 1.9 cm Echogenicity: Heterogeneous echotexture without discrete mass. Vascularity: Normal. Nodules: None. LEFT LOBE: Size: 4.9 x 1.6 x 2.1 cm Echogenicity: Heterogeneous echotexture without discrete mass. Vascularity: Normal. Nodules: None. OTHER FINDINGS: None. IMPRESSION: No thyroid nodules are identified. DATA REPOSITORY:
== END ==
PROVIDERS: PCP Nurse Practitioner Adult Health; Visit Provider Nurse Practitioner Family
DX: Z80.8 Family history of malignant neoplasm of other organs or systems (principal); E07.89 Other specified disorders of thyroid
CPT/HCPCS: 76536

== ENCOUNTER 2024-03-21 18:13 | Emergency (ER) | payer MEDICARE, SELFPAY ==
[2024-03-21 18:16] VITALS: BP 153/91; PULSE 78; RESP 20; TEMP 36.4; O2SAT 98
--- NOTE | 2024-03-21 18:29 | W.ED.GENAD ---
Discharge Plan Disposition Patient Disposition: Home Condition: Stable Discharge Details Clinical Impression: Internal derangement of right knee Primary Care Provider: Sparkle Smart ED Provider: Blue Ibrahim Home Meds and New Rx's Prescriptions: Continued vitamin B complex [B Complex-Vitamin B12] Tablet 1 tab PO DAILY Patient Comments: Low-normal vit B12 (h/o of cognitive impairment in M with low Vit B12) cholecalciferol (vitamin D3) 25 mcg (1,000 unit) capsule 5,000 unit PO DAILY Patient Comments: Vit D deficiency liquid CBD 40 mg PO DAILY acyclovir 400 mg tablet 400 mg PO BID PRN (Reason: herpes outbreak) Qty: 60 0RF albuterol sulfate [ProAir HFA] 90 mcg/actuation HFA aerosol inhaler 2 puff Inhalation Q4H PRN Qty: 1 3RF Rx Instructions: Dispense with spacer for cough, SOB, wheeze. hydroxyzine HCl 25 mg tablet 25 mg PO BID MDD 100mg/24h PRN (Reason: anxiety) Qty: 60 3RF ketoconazole 2 % shampoo 1 applic Topical DAILY PRN (Reason: bean derm) Qty: 240 1RF Rx Instructions: DX: [facility] DISPENSE: 240 ML mometasone 50 mcg/actuation spray,non-aerosol 1 - 2 spray NS DAILY PRN (Reason: nasal congestion) Qty: 17 3RF Rx Instructions: Failed Flonase & Triamcinolone nasal (03/11/2020) Discharge Instructions Instructions: Meniscus Tear ED Additional Instructions: You were seen in the emergency department for your right knee locking up, you have instability of the right knee you likely have a meniscus tear in the setting of severe osteoarthritis, you likely need a knee replacement at some point in the near future. Please follow-up with orthopedics, use the hinged knee brace we provided as well as the crutches you have in the car. Please use therapeutic dosing of Tylenol (acetamenophen) & Advil (ibuprofen) in an alternating fashion as follows: Take 1000mg of Tylenol every 6 hours without missing doses- that is 4 times per day. Elbert in between the Tylenol dosings, take 400-600mg of Advil also on a 6 hour schedule, that is also 4 times per day. The daily maximum dosing of Tylenol is 4000mg, and the daily maximum dosing of Advil is 2400mg. This is safe to do for weeks. Please note that some common cold medications & prescription pain medications may contain acetamenophen and you need to read OTC drug labels and factor that in to maximum daily dosings. Please rest, ice, compress and elevate the knee often, return for any signs of neurovascular compromise below the knee Referrals: [facility] [Provider Group] Sparkle Smart NP [Primary Care Provider] - Discharge Data Discharge Date/Time-TO BE ENTERED AT DEPARTURE: 03/21/24 19:25 HPI General Date/Time Provider Initiated Documentation: 03/21/24 18:29. HPI Narrative: 68 year-old female presents to ED today by POV/ambulating with a chief complaint of R knee pain, R-foot dominant, with onset over a month ago when she was getting out of the car, felt an instability and now having occasional lockups. Quality described as knee stuck in certain degrees of flexion sometimes, no radiation to numbness/tingling, bruising, endorses swelling, denies traumatic fall, denies hip pain. Severity is described as moderate to severe at times. Palliating factors include OTC analgesics with little relief sometimes, sometimes she's able to guide it out of a locked position. Provoking factors include movement. Events leading up to the incident/Associated Symptoms: Patient knows she needs two knee replacements. Patient not anticoagulated. Related Data Home Medications ?Medication ?Instructions ?Recorded ?Confirmed vitamin B complex (B 1 tab PO DAILY 09/25/20 03/21/24 Complex-Vitamin B12 tablet) liquid CBD 40 mg PO DAILY 06/30/21 03/21/24 cholecalciferol (vitamin D3) 25 5,000 unit PO DAILY 08/10/22 03/21/24 mcg (1,000 unit) capsule acyclovir 400 mg tablet 400 mg PO BID PRN herpes outbreak 12/23/22 03/21/24 #60 tab-caps albuterol sulfate 90 mcg/actuation 2 puff inhalation Q4H PRN ##1 12/23/22 03/21/24 aerosol inhaler (ProAir HFA) hydroxyzine HCl 25 mg tablet 25 mg PO BID PRN anxiety #60 tabs 12/23/22 03/21/24 ketoconazole 2 % shampoo 1 applic topical DAILY PRN bean 12/23/22 03/21/24 derm #240 mL mometasone 50 mcg/actuation nasal 1 - 2 spray NS DAILY PRN nasal 12/23/22 03/21/24 spray congestion #17 grams Previous Rx's ?Medication ?Instructions ?Recorded acyclovir 400 mg tablet 400 mg PO BID PRN herpes outbreak 12/23/22 #60 tab-caps albuterol sulfate 90 mcg/actuation 2 puff inhalation Q4H PRN ##1 12/23/22 aerosol inhaler (ProAir HFA) hydroxyzine HCl 25 mg tablet 25 mg PO BID PRN anxiety #60 tabs 12/23/22 ketoconazole 2 % shampoo 1 applic topical DAILY PRN bean 12/23/22 derm #240 mL mometasone 50 mcg/actuation nasal 1 - 2 spray NS DAILY PRN nasal 12/23/22 spray congestion #17 grams Allergies Allergy/AdvReac Type Severity Reaction Status Date / Time lidocaine Allergy Severe Anaphylaxsi Verified 03/21/24 18:20 s sulfamethoxazole (From Allergy Severe Other (See Verified 03/21/24 18:20 Bactrim) Comment) trimethoprim (From Bactrim) Allergy Severe Other (See Verified 03/21/24 18:20 Comment) Sulfa (Sulfonamide Allergy Intermediate Dizziness/Lightheaded, Verified 03/21/24 18:20 Antibiotics) severe rash/chills shakes sumatriptan Allergy Intermediate THROAT Verified 03/21/24 18:20 FEELS TIGHT Anesthetics - Amide Type - Allergy Unknown Other (See Verified 03/21/24 18:20 Select A (Anesthetics - Comment) Amide Type) fluticasone propionate (From AdvReac Mild Irritated Verified 03/21/24 18:20 Flonase) throat methylprednisolone AdvReac Other (See Verified 03/21/24 18:20 Comment) anchovies Allergy Severe swollen Uncoded 03/21/24 18:20 throat General Stated Complaint: Orthopedic SAMMIE: 4 Review of Systems All systems reviewed & are unremarkable except as noted in HPI and below Exam Narrative Exam Narrative: GENERAL APPEARANCE: Well-nourished, non-toxic, awake and alert, atraumatic, no acute distress. SKIN: Warm, pink, dry, intact, without rashes/lesions/ulcerations. HEAD: Normocephalic, atraumatic, normal hair distribution for gender/age. EYES: Normal conjunctiva, no exudates on lids/lashes. ENT: Nares patent, no circumoral cyanosis, no facial swelling NECK: Supple, trachea midline, painless cervical ROM. LUNGS/CHEST: Non-labored respirations, normal A/P diameter, symmetrical expansion, no chest wall deformity HEART (CV/PV): Regular rate, R dorsalis pedis pulse 2+, no peripheral edema, no JVD. ABDOMEN: Soft, non-distended, no guarding. MSK: Normal ROM, no swelling/deformity to bilateral UEs or LEs, moving all extremities without weakness, no cyanosis, spine midline without tenderness, normal curvature, diffuse right knee tenderness without crepitus, no ligamentous laxity with varus/valgus forces, no anterior drawer laxity, Leoncio positive likely lateral compartment meniscal etiology, patella mobile, neurovascular intact distal, no hip tenderness NEURO: Mental Status AAOx4 - alert to person, place, time, events No facial droop, no forehead involvement. Motor: No focal weakness - strength 5/5 in bilateral UEs and LEs, proximal and distal, symmetric. Sensory: sensation intact to light touch globally. Gait antalgic. PSYCH: euthymic, cooperative, pleasant, appropriate speech Course Vital Signs Vital signs: Vital Signs Temperature 36.4 C 03/21/24 18:16 Pulse 78 03/21/24 18:16 Respiratory Rate 20 03/21/24 18:16 Blood Pressure 153/91 H 03/21/24 18:16 Pulse Oximetry 98 03/21/24 18:16 Temperature 36.4 C 03/21/24 18:16 Pulse 78 03/21/24 18:16 Respiratory Rate 20 03/21/24 18:16 Respiratory Effort Normal 03/21/24 18:19 Blood Pressure 153/91 H 03/21/24 18:16 Blood Pressure Position Sitting 03/21/24 18:16 Pulse Oximetry 98 03/21/24 18:16 Oxygen Delivery Method Room Air 03/21/24 18:16 Oxygen Flow Rate 0 03/21/24 18:16 Medical Decision Making This dictation utilizes [id number] dictation software and may contain unedited grammatical errors. 68 year-old female presents to ED today by POV/ambulating with a chief complaint of R knee pain, R-foot dominant, with onset over a month ago when she was getting out of the car, felt an instability and now having occasional lockups. Quality described as knee stuck in certain degrees of flexion sometimes, no radiation to numbness/tingling, bruising, endorses swelling, denies traumatic fall, denies hip pain. Severity is described as moderate to severe at times. Palliating factors include OTC analgesics with little relief sometimes, sometimes she's able to guide it out of a locked position. Provoking factors include movement. Events leading up to the incident/Associated Symptoms: Patient knows she needs two knee replacements. Patients' medical history: Osteoarthritis, overweight, osteopenia, vitamin D deficiency. Family and social history: Noncontributory. Pertinent exam findings / vital signs include diffuse right knee tenderness without crepitus, no ligamentous laxity with varus/valgus forces, no anterior drawer laxity, Leoncio positive likely lateral compartment meniscal etiology, patella mobile, neurovascular intact distal, no hip tenderness. Differential / pathologies of concern include meniscal tear, osteoarthritis, fracture, internal derangement of right knee, not neurovascular compromise. Diagnostic studies of: -XR R knee-shows severe osteoarthritis, no fracture. Interventions of: -Knee immobilizer, patient has been on crutches, placed on Ortho follow-up list. ED Course/Assessment/Plan: 68-year-old female presents with right knee instability and intermittent locking after a pain while getting out of the car a month ago. She has known arthritis and knows she needs to knee replacements. Her exam is suspicious for meniscus tear, her x-ray shows no acute fracture that shows severe degenerative changes. I counseled her on knee immobilizer and crutches use, therapeutic dosing of Tylenol and ibuprofen and RICE therapy and placed her on the Ortho follow-up list, strict return criteria for signs of neurovascular compromise. Findings not consistent with fracture, neurovascular compromise. Disposition of internal derangement of right knee. Patient verbalized understanding of the plan and return to ED criteria and engaged in shared decision making. Medical Records Medical records reviewed: Yes I reviewed the patient's medical records. Imaging Data Radiologic Study: Attestation: I personally reviewed and interpreted this imaging study as follows: Imaging: X-Ray Radiologist's impression: Exam(s) Addendum created by Tara Fajardo MD on 03/21/2024 7:25:17 PM EST: Correction of a typographical error in the findings as follows: Bones/joints: Tricompartmental degenerative changes. Chronic appearing lateral translation of tibia relative to femur. Joint space narrowing. No acute fracture or subluxation. No significant joint effusion. Initial report created on 03/21/2024 7:24:46 PM EST: PROCEDURE INFORMATION: Exam: XR Right Knee Exam date and time: 03/21/2024 18:48 Age: 68 years old Clinical indication: Pain; Knee; Right TECHNIQUE: Imaging protocol: Radiologic exam of the right knee. Views: 3 views. COMPARISON: CR XR FOOT RT COMPLETE 11/17/2022 12:32 FINDINGS: Bones/joints: Tricompartmental degenerative changes. Chronic appearing lateral translation of femur relative to tibia. Joint space narrowing. No acute fracture or subluxation. No significant joint effusion. Soft tissues: Unremarkable. IMPRESSION: 1. No acute bony pathology. 2. Tricompartmental degenerative changes. Dictated and Authenticated by: Tara Fajardo MD. Quality:SDOH Health Related Social Needs: No Data to Display PFSH All Active Problems (Updated 03/21/24 @ 19:12 by MALENA Botello) Internal derangement of right knee (Acute) Abnormal thyroid blood test (Acute) Pancolonic diverticulosis (Acute) Diverticula of colon (Acute) Thyroid antibody positive (Acute) Overweight (Chronic 08/06/12) Osteopenia (Chronic 03/07/16) Progressing 2020 DEXA Impaired fasting glucose (Chronic ~03/2020) 109 on 03/2020 Elevated LDL cholesterol level (Chronic) 2019 & 2021; ASCVD score 5%-->not a candidate for statin Family history of thyroid disease (Chronic) M-F-D (cancer) Family history of thyroid cancer (Chronic) D Vitamin D deficiency (Acute) 03/2020=19 Herpes simplex (Chronic 08/06/12) Genital; Acyclovir RX Osteoarthritis of left knee (Acute) [facility] report dated 11/24/16 Osteoarthritis of right knee (Acute 03/20/14) [place] [facility] [place] X-rays Seasonal allergies (Acute 12/06/13) RX Flonase Also allergic to environement (dust) Medical History Hyperplastic colon polyp (~10/2023) SARS-CoV-2 positive (09/10/21) Anxiety (01/09/13) Clonazepam Chronic sinusitis (04/14/15) Depressive disorder (07/26/11) Elevated antinuclear antibody (JACKIE) level (03/07/16) GERD without esophagitis (02/03/15) Vocal changes Left breast lump (07/30/15) Surgical History History of colonoscopy (~10/2023) limited chondroplasty (04/08/13) Dr Garrett medial femoral condyle and patellofemoral joint R Meniscectomy (04/08/13) Dr Garrett-arthroscopic partial R Deviated septum repair, ~1979 section x2 1987 and 1989 Family History Mother , Heart arrhythmia at age 69. Mental disorder Depression Father Hypertensive disorder, systemic arterial Hypothyroidism Paternal Grandmother Personal history of malignant neoplasm Colon cancer Maternal Grandmother Kidney disease Daughter Thyroid cancer Brain cancer Social History Smoking/Tobacco Use Status: Former Tobacco Use Quit Date: 05/08/87 Smoking risk assessment performed?: Yes Alcohol Intake: never Drug use: Never Substance use type: does not use Adopted: No Caregiver/Support person: Yes Foster care: No Household members: children and other Details: Grandson Housing: apartment Number of Children: 2 number of grandchildren: 2 Communication Needs: Corrective Lenses Education Level: college Details: BS degree Do you need help understanding health information?: Never current occupation: Works for [employer] ([employer]) Pets and animals: No Sexually active: Yes Do you think of yourself as: straight/heterosexual Current gender identity: female What is your relationship status?: How often do you talk on the phone with friends or family?: three or more times per week How often do you get together with friends or relatives?: once per week How often do you attend religion or orthodox services?: decline to answer Do you belong to any clubs or organized social groups?: no Panel score (0-1 are the most socially isolated patients): 1 What type of physical activity do you participate in: none and walking Duration: 15-30 minutes/day Frequency: 5-6 times per week Leatha/Advent: Religious Special leatha needs: No Seatbelt use: always Helmet use: Yes Drive intox or ride w/intox [employer]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
--- NOTE | 2024-03-21 18:30 | DI.RAD_ITS ---
Exam(s) XR KNEE RT 3V AP,LAT,TRESSA EXAM: XR KNEE RT 3V AP,LAT,TRESSA CLINICAL HISTORY: R knee pain. TECHNIQUE: 2D digital imaging was performed of the right knee. Four views obtained. AP, lateral and PA tunnel views were obtained. COMPARISON: CR RIGHT KNEE LIMITED 1 OR 2 VIEW from 01/23/2014 FINDINGS: BONES: No acute fracture is present. No bony destructive lesion is seen. JOINTS: Marked degenerative changes are seen involving all 3 joint compartments characterized by join t space narrowing and osteophytes. The findings are most marked at the patellofemoral joint. There is medial translation of the distal femur relative to the tibia. No joint effusion is seen. SOFT TISSUE: Normal. IMPRESSION: Marked osteoarthritis of the right knee. DATA REPOSITORY: RADIATION DOSE DELIVERED:
[2024-03-21 19:25] VITALS: BP 176/81; PULSE 80; RESP 20; O2SAT 99
--- NOTE | 2024-03-21 19:25 | DI.VRAD_ITS ---
Addendum created by Tara Fajardo MD on 03/21/2024 7:25:17 PM EST: Correction of a typographical error in the findings as follows: Bones/joints: Tricompartmental degenerative changes. Chronic appearing lateral translation of tibia relative to femur. Joint space narrowing. No acute fracture or subluxation. No significant joint effusion. Initial report created on 03/21/2024 7:24:46 PM EST: PROCEDURE INFORMATION: Exam: XR Right Knee Exam date and time: 03/21/2024 18:48 Age: 68 years old Clinical indication: Pain; Knee; Right TECHNIQUE: Imaging protocol: Radiologic exam of the right knee. Views: 3 views. COMPARISON: CR XR FOOT RT COMPLETE 11/17/2022 12:32 FINDINGS: Bones/joints: Tricompartmental degenerative changes. Chronic appearing lateral translation of femur relative to tibia. Joint space narrowing. No acute fracture or subluxation. No significant joint effusion. Soft tissues: Unremarkable. IMPRESSION: 1. No acute bony pathology. 2. Tricompartmental degenerative changes. Dictated and Authenticated by: Tara Fajardo MD. Ordering:LÓPEZ Mcarthur MD
--- NOTE | 2024-03-25 17:15 | NUR.NOTE ---
Accessed chart to get the discharge diagnosis for [facility] paperwork. Nursing Note:
--- NOTE | 2024-04-03 15:14 | NUR.NOTE ---
Accessed patient chart to print provider note to be faxed to [facility] for billing purposes. Nursing Note:
== END 2024-03-21 19:25 | disposition home or self-care (01) ==
PROVIDERS: Emergency Provider Physician Assistant; PCP Nurse Practitioner Adult Health
DX: M23.91 Unspecified internal derangement of right knee (principal)
CPT/HCPCS: 73562; 99283

== ENCOUNTER 2024-06-03 01:59 | Outpatient (CLI) | payer MEDICARE, SELFPAY ==
--- NOTE | 2024-06-03 07:15 | DI.MAMMO_ITS ---
Exam(s) MAMMO SCREENING EXAM: MAMMO SCREENING CLINICAL HISTORY: screening,z12.39 TECHNIQUE: Bilateral full field digital CC and MLO mammographic images were obtained with 3D tomosyn thesis and utilizing computer aided detection (CAD). COMPARISON: Available for comparison. FINDINGS: Masses/Architectural Distortion: None seen. Microcalcifications: No suspicious pleomorphic-type are seen. Skin Thickening/Nipple Retraction: None. IMPRESSION: 1. No significant interval change with no specific features of malignancy noted. 2. Unless there is more urgent need, screening mammography is recommended, as per [employer] guidelines. BI-RADS Category 1 - Negative Breast Density - Category B - Scattered areas of fibroglandular density Breast density category C or D implies that the patient has dense breast tissue. Dense breast tissue is very common and is not abnormal but dense breast tissue can make it harder to find cancer on a ma mmogram. Also, dense breast tissue may increase their breast cancer risk. This information about the result of the mammogram report was provided to the patient to raise their awareness. Use this report when you speak with the patient about their risks for breast cancer, which includes their family hist ory. At that time, you may recommend for more screening tests (Ultrasound or MRI) as they might be us eful based on their risk. A negative radiographic report should not delay biopsy if a dominant or clinically suspicious mass is present. Up to ten percent of cancers are not identified on mammography. A negative report may reinforce clinical impression. Adenosis and dense breasts may obscure an underlying neoplasm. False positive reports average 6 to 10%. Patient will receive a letter notifying them of these results.
== END 2024-06-03 02:19 ==
PROVIDERS: PCP Nurse Practitioner Adult Health; Visit Provider Nurse Practitioner Adult Health
DX: Z12.31 Encounter for screening mammogram for malignant neoplasm of breast (principal); R92.323 Mammographic fibroglandular density, bilateral breasts
CPT/HCPCS: 77063; 77067

== ENCOUNTER 2024-07-08 02:07 | Outpatient (CLI) | payer MEDICARE, SELFPAY ==
[2024-07-08 07:57] LABS: Anion Gap 8.9 mmol/L (3-11); BUN 15 mg/dL (7-18); CO2 29.1 mmol/L (21.0-32.0); CREATININE 0.9 mg/dL (0.55-1.02); Calculated LDL 137 mg/dL (<100); Chloride 106 mmol/L (98-107); Cholesterol 211 mg/dL (<200); Estimated GFR 70.51 (mL/min/1.73m2); Glucose 108 mg/dL (74-106); HDL Cholesterol 49 mg/dL (>or=50); Potassium 4.3 mmol/L (3.5-5.1); Sodium 144 mmol/L (136-145); TSH (W/Ref FT4) 5.41 uIU/mL (0.36-3.74); Triglyceride 127 mg/dL (<150)
[2024-07-08 18:13] LABS: T4, Free 1.1 ng/dL (0.8-2.2)
== END 2024-07-08 02:08 | disposition home or self-care (01) ==
PROVIDERS: PCP Nurse Practitioner Adult Health; Referring Provider Nurse Practitioner Adult Health; Visit Provider Nurse Practitioner Adult Health
DX: E03.8 Other specified hypothyroidism (principal); E78.00 Pure hypercholesterolemia, unspecified; R73.01 Impaired fasting glucose; Z83.49 Family history of other endocrine, nutritional and metabolic diseases; Z13.220 Encounter for screening for lipoid disorders; Z13.6 Encounter for screening for cardiovascular disorders
CPT/HCPCS: 36415; 80048; 80061; 83036; 84439; 84443

== ENCOUNTER 2024-08-09 15:57 | Outpatient (CLI) | payer MEDICARE, MEDICAID, SELFPAY ==
--- NOTE | 2024-08-09 15:45 | RT.EKG_ITS ---
APPROVED REPORT Exam: Resting ECG Reason for Exam: Preoperative evaluation Patient Location: O HR:69 bpm ECG Measurements Heart Rate 69 AXIS IN 184 P 45 QRSd 89 QRS 24 QT 401 T 51 QTc 430 Conclusion Sinus rhythm...normal P axis, V-rate 50- 99 Normal Electrocardiogram
== END 2024-08-09 15:58 | disposition home or self-care (01) ==
LOC: DI.KIM 15:57
PROVIDERS: PCP Nurse Practitioner Adult Health; Visit Provider Nurse Practitioner Family
DX: Z01.818 Encounter for other preprocedural examination (principal)
CPT/HCPCS: 93010

== ENCOUNTER 2024-12-25 02:06 | Outpatient (CLI) | payer MEDICARE, MEDICAID, SELFPAY ==
--- NOTE | 2024-12-25 07:08 | DI.MRI_ITS ---
Exam(s) MR BRAIN PITUITARY WO EXAM: MR BRAIN PITUITARY WO CLINICAL HISTORY: ? acute process, fam h/o dementia,tumor in daughter,migraine,G43.909 TECHNIQUE: Multiplanar multisequence MRI of the brain and pituitary gland was performed. CONTRAST MATERIAL: Noncontrast COMPARISON: No exams were available for comparison Findings: VENTRICLES AND EXTRA AXIAL SPACES: Normal in size and morphology for the patient's age. HEMORRHAGE: None. CEREBRAL PARENCHYMA: No focus of restricted diffusion to suggest acute infarct. No space-occupying lesion identified. Mild atrophy. Minimal tiny foci of high signal in the white matter likely reflecting mild microvascular changes. MIDLINE SHIFT: None. BRAINSTEM/CEREBELLUM: Normal. CALVARIUM: Normal. ENHANCEMENT: No suspicious enhancement identified. VISUALIZED PARANASAL SINUSES/MASTOIDS: Clear mucosal thickening greater of the right maxillary sinus. OTHER FINDINGS: None. PITUITARY: Pituitary stalk is midline. The gland demonstrates homogenous T2-weighted signal intensity. No evidence of macroadenoma. The optic chiasm is unremarkable. The cavernous portions of both carotid arteries are unremarkable. Impression: Unremarkable MRI of the brain and pituitary gland. DATA REPOSITORY:
== END 2024-12-25 02:26 ==
LOC: DI 02:06
PROVIDERS: PCP Nurse Practitioner Adult Health; Visit Provider Nurse Practitioner Adult Health
DX: G43.909 Migraine, unspecified, not intractable, without status migrainosus (principal)
CPT/HCPCS: 70551

== ENCOUNTER 2025-01-16 03:04 | Outpatient (CLI) | payer MEDICARE, MEDICAID, SELFPAY ==
--- NOTE | 2025-01-16 13:46 | DI.RAD_ITS ---
Exam(s) XR FOOT RT COMPLETE EXAM: XR FOOT RT COMPLETE CLINICAL HISTORY: Right foot pain,M79.671. TECHNIQUE: 2D digital imaging was performed. Three views. COMPARISON: CR XR FOOT RT COMPLETE from 11/17/2022 FINDINGS: BONES: No acute fracture is present. No bony destructive lesion is seen. Tiny plantar calcaneal spur. JOINTS: No dislocation present. There are mild degenerative changes of the 1st MTP joint. There are mild degenerative changes at the talar 1st cuneiform joint. The plantar arch is maintained. SOFT TISSUE: Normal. IMPRESSION: Mild degenerative changes DATA REPOSITORY: RADIATION DOSE DELIVERED:
== END 2025-01-16 03:24 ==
LOC: DI 03:04
PROVIDERS: PCP Nurse Practitioner Adult Health; Visit Provider Podiatrist
DX: M79.671 Pain in right foot (principal); M20.41 Other hammer toe(s) (acquired), right foot; S93.524A Sprain of metatarsophalangeal joint of right lesser toe(s), initial encounter; M79.674 Pain in right toe(s); W20.8XXA Other cause of strike by thrown, projected or falling object, initial encounter
CPT/HCPCS: 29540; 99213; 73630

== ENCOUNTER 2025-02-17 14:04 | Outpatient (REF) | payer MEDICARE, MEDICAID, SELFPAY ==
--- NOTE | 2025-02-17 13:45 | PAPFT_PTH ---
PATIENT: Opal Hermosillo LOC: [facility] U#:[id number] AGE/SX: 69/F ROOM: RE02/17/[address]: Sparkle Smart APRN : 1955 BED: DIS: 02/17/2025 SPEC #: [id number] RECD: 02/18/25 17:19 STATUS: HAYES RERey #: [id number] ZUNILDA: 02/17/25 13:[address]: Sparkle Smart DEPT: [facility] Cytology RECD BY: Flakita Schneider Tissues: 1 - CX/ENDOCX FOR PAP SMEARS Procedures: PAP THIN PREP/[facility] Screening HPV DNA PROBE Comments: [id number] (HPV 16 & 18/45)
== END 2025-02-17 14:05 | disposition home or self-care (01) ==
LOC: LBN 14:04
PROVIDERS: PCP Nurse Practitioner Adult Health; Visit Provider Nurse Practitioner Adult Health
DX: Z12.4 Encounter for screening for malignant neoplasm of cervix (principal)
CPT/HCPCS: 88142; 87624

== ENCOUNTER → 2025-03-19 08:55 | Outpatient (BNVA) | payer MEDICARE, MEDICAID, SELFPAY | PROVIDERS: PCP Nurse Practitioner Adult Health; Referring Provider Nurse Practitioner Adult Health; Visit Provider Podiatrist | DX: M20.41 Other hammer toe(s) (acquired), right foot (principal); M79.674 Pain in right toe(s); M25.571 Pain in right ankle and joints of right foot; M25.572 Pain in left ankle and joints of left foot | CPT/HCPCS: 99213 ==

== ENCOUNTER 2025-04-29 07:14 | Outpatient (CLI) | payer MEDICARE, MEDICAID, SELFPAY ==
[2025-04-29 12:06] LABS: Abs Immature Grans 0.03 10^3/uL (0.0-0.06); HCT 40.8 % (36.0-46.0); HGB 13.3 g/dL (11.2-15.7); Immature Grans % 0.4 %; MCH 28.7 pg (27.0-33.0); MCHC 32.6 % (32.0-36.0); MCV 88 fL (80-95); MPV 10.4 fL (8.0-11.0); Platelet Count 286 10^3/uL (130-400); RBC 4.64 10^6/uL (3.93-5.22); RDW 12.3 % (11.7-14.6); RDW-SD 39.5 fL; WBC 7.00 10^3/uL (4.4-10.8)
[2025-04-29 12:06] LABS: Glucose Negative (Negative)
[2025-04-29 12:15] LABS: Iron 56 ug/dL (50-170)
[2025-04-29 12:59] LABS: Hemoglobin A1C 5.7 % (<5.7)
[2025-04-29 13:02] LABS: ALT 19 U/L (10-49); AST 18 U/L (<34); Albumin 4.6 g/dL (3.2-5.0); Alkaline Phosphatase 94 U/L (46-116); Anion Gap 7.8 mmol/L (3-11); BUN 16 mg/dL (9-23); Bilirubin, Total 0.3 mg/dL (0.2-1.2); CO2 28.2 mmol/L (20.0-31.0); Calcium 9.5 mg/dL (8.3-10.6); Chloride 107 mmol/L (98-107); Cholesterol 207 mg/dL (<200); Glucose 86 mg/dL (74-106); HDL Cholesterol 45 mg/dL (>or=50); Potassium 4.1 mmol/L (3.5-5.1); Sodium 143 mmol/L (136-145); Total Protein 7.4 g/dL (5.7-8.2); Vitamin D 25 Total 40 ng/mL (30-100)
[2025-04-29 13:04] LABS: TSH 2.88 uIU/mL (0.55-4.78)
[2025-04-29 13:06] LABS: C-Reactive Protein 0.63 mg/dL (<=0.50)
[2025-04-29 16:52] LABS: T3,Free 3.9 pg/mL (2.8-5.3)
[2025-05-02 09:59] LABS: SS-A/Ro, IgG <2.3 CU (<20.0)
[2025-05-02 10:31] LABS: JO 1 Ab, IgG <0.2 U
[2025-05-02 14:19] LABS: Apolipoprotein B, S 108 mg/dL
== END 2025-04-29 07:15 | disposition home or self-care (01) ==
PROVIDERS: PCP Nurse Practitioner Adult Health; Visit Provider Naturopath
DX: E06.3 Autoimmune thyroiditis (principal); G43.109 Migraine with aura, not intractable, without status migrainosus; G47.01 Insomnia due to medical condition; K59.01 Slow transit constipation; R03.0 Elevated blood-pressure reading, without diagnosis of hypertension; M17.0 Bilateral primary osteoarthritis of knee; N95.1 Menopausal and female climacteric states; R53.83 Other fatigue; Z96.651 Presence of right artificial knee joint; K57.30 Diverticulosis of large intestine without perforation or abscess without bleeding; E78.00 Pure hypercholesterolemia, unspecified; E66.3 Overweight; R73.03 Prediabetes; E55.9 Vitamin D deficiency, unspecified; R35.0 Frequency of micturition; H16.223 Keratoconjunctivitis sicca, not specified as Sjogren's, bilateral; R68.2 Dry mouth, unspecified; M25.541 Pain in joints of right hand; M25.542 Pain in joints of left hand; Z82.49 Family history of ischemic heart disease and other diseases of the circulatory system; R42 Dizziness and giddiness
CPT/HCPCS: 36415; 80053; 80061; 82172; 82306; 83695; 86376; 81003; 83036; 83540; 84439; 84443; 84481; 85025; 86038; 86140; 86225; 86235; 86431